=== PATIENT | female | born 1995 | race Hispanic/Latino ===

== ENCOUNTER 2018-11-29 19:58 | Emergency (ER) | payer OTHER ==
--- OUTSIDE RECORDS SUMMARY | 2018-11-29 20:00 | XMS REPORT | Clinical Summary ---
:1995 Author Organization [facility] Address [address] [place] [address] Care Team Providers Name Role Phone Asked, No Pcp Primary Care Provider Unavailable Allergies Active Allergy Reactions Severity Noted Date Comments Ketorolac Shortness Of Breath, GI Intolerance High 06/10/2017 Medications No known medications Active Problems Not on file Immunizations Name Dates Previously Given Next Due Tdap 06/10/2017 Social History Tobacco Use Types Packs/Day Years Used Date Never Assessed Sex Assigned at Date Recorded Not on file Job Start Date Occupation Industry Not on file Not on file Not on file Travel History Travel Start Travel End No recent travel history available. Last Filed Vital Signs Not on file Plan of Treatment Not on file Results Not on fileafter 11/28/2017 Advance Directives Patient has advance care planning documents on file. For more information, please contact:Gordon [id number] [place] [address]
[2018-11-29 20:57] LABS: Absolute Lymphocytes (CBC) 2.5 K/uL (0.7-4.9); Absolute Monocytes 0.7 K/uL (0.1-1.3); Basophils % 0.3 % (0-1.3); Eosinophils % 3.5 % (0-4.4); Hematocrit 35.5 % (36.0-45.0); Lymphocytes % 33.7 % (15.3-44.8); MPV 11.2 fL (7.6-11.3); Monocytes % 8.8 % (3.3-12.3); RBC Red Blood Cell Count 4.19 M/uL (3.86-4.86)
[2018-11-29 21:05] LABS: ALT/SGPT 27 U/L (12-78); AST/SGOT 16 U/L (15-37); Albumin 3.9 g/dL (3.4-5.0); Alkaline Phosphatase 90 U/L (45-117); BUN Blood Urea Nitrogen 13 mg/dL (7-18); Bicarbonate 28 mmol/L (21-32); Bilirubin Direct < 0.1 mg/dL (0-0.2); Bilirubin Total 0.3 mg/dL (0.2-1.0); Glucose Level 85 mg/dL (74-106); Lipase 134 U/L (73-393); Potassium 3.5 mmol/L (3.5-5.1); Protein, Total 7.8 g/dL (6.4-8.2); Sodium Level 142 mmol/L (136-145)
[2018-11-29] MEDS ORDERED: NA CHLORIDE 0.9% 1,000 ML ONE (21:05)
[2018-11-29] MEDS ORDERED: MORPHINE 4 MG/ML SYR ONE (21:05)
[2018-11-29] MEDS ORDERED: ONDANSETRON 4 MG/2 ML VIAL ONE (21:05)
[2018-11-29 21:42] LABS: Urine Blood 2+ (NEG); Urine Glucose NEGATIVE (NEG); Urine Protein NEGATIVE (NEG)
--- NOTE | 2018-11-29 21:52 | ER ---
Nurse's Notes [facility] Name: Teresita Gorman Age: 23 yrs Sex: Female : 1995 Arrival Date: 11/29/2018 Time: 20:01 Bed 26 Private MD: Diagnosis: Right flank pain;nausea and vomiting Presentation: 11/29 20:10 Presenting complaint: Patient states: Dizziness, vomiting, RLQ abdominal pain radiating lp1 to R flank that began yesterday; States low grade fever and chills at home; Denies any pain with urination. Transition of care: patient was not received from another setting of care. Onset of symptoms was November 28, 2018. Risk Assessment: Do you want to hurt yourself or someone else? Patient reports no desire to harm self or others. Initial Sepsis Screen: Does the patient meet any 2 criteria? No. Patient's initial sepsis screen is negative. Does the patient have a suspected source of infection? No. Patient's initial sepsis screen is negative. Care prior to arrival: None. 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 - Social history:: Smoking status: Patient/guardian denies using tobacco. - Ebola Screening: : No symptoms or risks identified at this time. Screenin:13 Abuse screen: Denies threats or abuse. Denies injuries from another. Nutritional lp1 screening: No deficits noted. Tuberculosis screening: No symptoms or risk factors identified. Fall Risk None identified. Assessment: 20:37 General: Appears in no apparent distress. comfortable, Behavior is calm, cooperative. rv Pain: Complains of pain in right lower quadrant Pain currently is 9 out of 10 on a pain scale. Quality of pain is described as sharp, Is intermittent. Neuro: Level of Consciousness is awake, alert, obeys commands, Oriented to person, place, time, situation. Cardiovascular: Patient's skin is warm and dry. Respiratory: Airway is patent. GI: Abdomen is flat, Reports nausea, vomiting. : No signs and/or symptoms were reported regarding the genitourinary system. EENT: No signs and/or symptoms were reported regarding the EENT system. Derm: Skin is intact. Musculoskeletal: No signs and/or symptoms reported regarding the musculoskeletal system. 22:02 Reassessment: Patient appears in no apparent distress at this time. Patient and/or rv family updated on plan of care and expected duration. Pain level reassessed. Patient is alert, oriented x 3, equal unlabored respirations, skin warm/dry/pink. patient went to CT scan. 23:15 Reassessment: patient complained of chest pain. patient is tachycardic upon rv auscultation, EKG done by STACIE Chau. referred to [facility]. cleared for discharge. Vital Signs: 20:12 BP 129 / 68; Pulse 84; Resp 16; Temp 98.3(O); Pulse Ox 100% on R/A; Weight 62.6 kg (R); lp1 Height 5 ft. 4 in. (162.56 cm); Pain 8/10; 21:00 BP 121 / 78; Pulse 82; Resp 18; Pulse Ox 99% ; rv 22:08 BP 131 / 80; Pulse 81; Resp 17 S; Pulse Ox 98% on R/A; rv 23:00 BP 116 / 67; Pulse 71; Resp 17; Temp 98.1; Pulse Ox 97% ; rv 20:12 Body Mass Index 23.69 (62.60 kg, 162.56 cm) lp1 ED Course: 20:01 Patient arrived in ED. am2 20:11 Triage completed. lp1 20:13 Arm band placed on right wrist. lp1 20:14 Jonathan Vital RN is Primary Nurse. rv 20:14 Kofi Headley MD is Attending Physician. ps1 20:25 Inserted saline lock: 20 gauge in right antecubital area, using aseptic technique. rv Blood collected. 20:39 Patient has correct armband on for positive identification. Bed in low position. Call rv light in reach. Side rails up X 1. Pulse ox on. NIBP on. 21:26 Abdomen 1 View (KUB) XRAY In Process Unspecified. EDMS 22:13 CT Abd/Pelvis - IV Contrast Only In Process Unspecified. EDMS 23:16 No provider procedures requiring assistance completed. IV discontinued, intact, rv bleeding controlled, No redness/swelling at site. Pressure dressing applied. Administered Medications: 20:53 Drug: morphine 4 mg Route: IVP; Site: right antecubital; rv 21:49 Follow up: Response: No adverse reaction; Pain is decreased rv 20:53 Drug: Zofran 4 mg Route: IVP; Site: right antecubital; rv 23:17 Follow up: Response: No adverse reaction rv 20:53 Drug: NS 0.9% 1000 ml Route: IV; Rate: 1 bolus; Site: right antecubital; rv 23:17 Follow up: IV Status: Completed infusion; IV Intake: 1000ml rv 21:48 Drug: Reglan 10 mg Route: IVP; Site: right antecubital; rv 23:17 Follow up: Response: Marked relief of symptoms rv 21:49 Drug: Benadryl 25 mg Route: IVP; Site: right antecubital; rv 23:17 Follow up: Response: Marked relief of symptoms rv Intake: 23:17 IV: 1000ml; Total: 1000ml. rv Outcome: 21:50 Discharge ordered by . ps1 23:17 Discharged to home ambulatory. rv 23:17 Condition: improved 23:17 Discharge instructions given to patient, Instructed on discharge instructions, follow up and referral plans. medication usage, Demonstrated understanding of instructions, follow-up care, medications, Prescriptions given X 2. 23:21 Patient left the ED. rv Signatures: Dispatcher [employer] EDMS Rima Archibald RN RN lp1 Corrina Dickens am2 Kofi Headley MD MD ps1 Jonathan Vital RN RN rv
--- NOTE | 2018-11-29 21:52 | EDPHYS ---
Physician Documentation [facility] Name: Teresita Gorman Age: 23 yrs Sex: Female : 1995 Arrival Date: 11/29/2018 Time: 20:01 Bed 26 Private MD: ED Physician Kofi Headley HPI: 11/29 21:42 This 23 yrs old Female presents to ER via Ambulatory with complaints of ps1 Dizziness, Vomiting, Back Pain. 21:42 patient has a history of kidney stones. States that she has had two visits for the same ps1 this year. She is c/o right flank pain for last 48 hours associated with n/v. States that she does not have urinary symptoms. Pain rated as moderate. Has had a couple episodes of vomiting. s/p bettye. . 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 - Social history:: Smoking status: Patient/guardian denies using tobacco. - Ebola Screening: : No symptoms or risks identified at this time. ROS: 21:42 Constitutional: Negative for fever, chills, and weight loss, Eyes: Negative for injury, ps1 pain, redness, and discharge, Cardiovascular: Negative for chest pain, palpitations, and edema, Respiratory: Negative for shortness of breath, cough, wheezing, and pleuritic chest pain, Back: Negative for injury and pain, MS/Extremity: Negative for injury and deformity, Skin: Negative for injury, rash, and discoloration, Neuro: Negative for headache, weakness, numbness, tingling, and seizure. 21:42 Abdomen/GI: Positive for abdominal pain, nausea and vomiting. 21:42 : Positive for flank pain. Exam: 21:42 Constitutional: This is a well developed, well nourished patient who is awake, alert, ps1 and in no acute distress. Head/Face: Normocephalic, atraumatic. Eyes: Pupils equal round and reactive to light, extra-ocular motions intact. Lids and lashes normal. Conjunctiva and sclera are non-icteric and not injected. Chest/axilla: Normal chest wall appearance and motion. Nontender with no deformity. No lesions are appreciated. Cardiovascular: Regular rate and rhythm. No gallops, murmurs, or rubs. Normal PMI, no JVD. No pulse deficits. Respiratory: Lungs have equal breath sounds bilaterally, clear to auscultation and percussion. No rales, rhonchi or wheezes noted. No increased work of breathing, no retractions or nasal flaring. Abdomen/GI: Soft, non-tender, with normal bowel sounds. No distension or tympany. No guarding or rebound. No evidence of tenderness throughout. Skin: Warm, dry with normal turgor. Normal color with no rashes, no lesions, and no evidence of cellulitis. MS/ Extremity: Pulses equal, no cyanosis. Neurovascular intact. Full, normal range of motion. Neuro: Awake and alert, GCS 15, oriented to person, place, time, and situation. Cranial nerves II-XII grossly intact. Sensory grossly intact. Vital Signs: 20:12 BP 129 / 68; Pulse 84; Resp 16; Temp 98.3(O); Pulse Ox 100% on R/A; Weight 62.6 kg (R); lp1 Height 5 ft. 4 in. (162.56 cm); Pain 8/10; 21:00 BP 121 / 78; Pulse 82; Resp 18; Pulse Ox 99% ; rv 22:08 BP 131 / 80; Pulse 81; Resp 17 S; Pulse Ox 98% on R/A; rv 23:00 BP 116 / 67; Pulse 71; Resp 17; Temp 98.1; Pulse Ox 97% ; rv 20:12 Body Mass Index 23.69 (62.60 kg, 162.56 cm) lp1 MDM: 20:47 Patient medically screened. ps1 21:42 Data reviewed: vital signs, nurses notes, lab test result(s), radiologic studies, and ps1 as a result, I will discharge patient. Counseling: I had a detailed discussion with the patient and/or guardian regarding: the historical points, exam findings, and any diagnostic results supporting the discharge/admit diagnosis, lab results, radiology results, the need for outpatient follow up, to return to the emergency department if symptoms worsen or persist or if there are any questions or concerns that arise at home. ED course: KUB ordered as the patient states that she did not want another CT scan for stones. KUB negative for stones. Explained results to patient and she then wanted the scan to look for more etiology of pain. Gave 4x4 and reglan / Benadryl for her PINTO. Labs and imaging reviewed and not c/w acute emergent process. Pt stable for discharge. Can be mild dehydration as patient states that she was working in the heat. . 11/29 20:14 Order name: Basic Metabolic Panel; Complete Time: 21: bb 11/29 20:14 Order name: CBC with Diff; Complete Time: 21:11/29 20:14 Order name: Creatinine for Radiology; Complete Time: 21:11/29 20:14 Order name: Hepatic Function; Complete Time: 21: bb 11/29 20:14 Order name: Lipase; Complete Time: 21: 11/29 20:55 Order name: Urine Dipstick--Ancillary (enter results); Complete Time: 21:52 ag4 11/29 20:45 Order name: Abdomen 1 View (KUB) XRAY ps1 11/29 20:56 Order name: Urine --Ancillary (enter results); Complete Time: 21:52 ag4 11/29 21:37 Order name: CT Abd/Pelvis - IV Contrast Only ps1 11/29 20:14 Order name: IV Saline Lock; Complete Time: 20:43 bb 11/29 20:14 Order name: Labs collected and sent; Complete Time: 20:43 bb Administered Medications: 20:53 Drug: morphine 4 mg Route: IVP; Site: right antecubital; rv 21:49 Follow up: Response: No adverse reaction; Pain is decreased rv 20:53 Drug: Zofran 4 mg Route: IVP; Site: right antecubital; rv 23:17 Follow up: Response: No adverse reaction rv 20:53 Drug: NS 0.9% 1000 ml Route: IV; Rate: 1 bolus; Site: right antecubital; rv 23:17 Follow up: IV Status: Completed infusion; IV Intake: 1000ml rv 21:48 Drug: Reglan 10 mg Route: IVP; Site: right antecubital; rv 23:17 Follow up: Response: Marked relief of symptoms rv 21:49 Drug: Benadryl 25 mg Route: IVP; Site: right antecubital; rv 23:17 Follow up: Response: Marked relief of symptoms rv Disposition: 11/29/18 21:50 Discharged to Home. Impression: Right flank pain, nausea and vomiting. - Condition is Stable. - Discharge Instructions: Flank Pain, Adult, Nausea and Vomiting, Adult. - Prescriptions for Zofran 4 mg Oral Tablet - take 1 tablet by ORAL route every 12 hours As needed; 20 tablet. Tramadol 50 mg Oral Tablet - take 1 tablet by ORAL route every 8 hours as needed; 12 tablet. - Medication Reconciliation Form, Thank You Letter, Antibiotic Education, Prescription Opioid Use, Work release form form. - Follow up: Private Physician; When: As needed; Reason: Recheck today's complaints, Continuance of care, Re-evaluation by your physician. Follow up: Emergency Department; When: As needed; Reason: Fever > 102 F, Worsening of condition. - Problem is new. - Symptoms are unchanged. Signatures: Dispatcher [employer] EDRosina Ewing RN RN bb Rima Archibald RN RN lp1 Kofi Headley MD MD ps1 Jonathan Vital RN RN rv Corrections: (The following items were deleted from the chart) 23:21 21:50 11/29/2018 21:50 Discharged to Home. Impression: Right flank pain; nausea and rv vomiting. Condition is Stable. Forms are Medication Reconciliation Form, Thank You Letter, Antibiotic Education, Prescription Opioid Use. Follow up: Private Physician; When: As needed; Reason: Recheck today's complaints, Continuance of care, Re-evaluation by your physician. Follow up: Emergency Department; When: As needed; Reason: Fever > 102 F, Worsening of condition. Problem is new. Symptoms are unchanged. ps1
[2018-11-29] MEDS ORDERED: METOCLOPRAMIDE 10 MG/2mL INJ ONE (22:01)
[2018-11-29] MEDS ORDERED: DIPHENHYDRAMINE 50 MG/ML VIAL ONE (22:01)
--- NOTE | 2018-11-29 22:35 | RAD REPORT ---
EXAM DESCRIPTION: RAD - Abdomen 1 View (KUB) - 11/29/2018 9:24 pm CLINICAL HISTORY: evaluate for right kidney stone Pain COMPARISON: No comparisons FINDINGS: The bowel gas pattern is non-obstructive. No evidence of free air or pneumatosis. No suspi cious calcifications. Moderate fecal retention in the colon. Cholecystectomy clips. IMPRESSION: Moderate fecal retention in the colon.
--- NOTE | 2018-11-30 10:05 | RAD REPORT ---
EXAM DESCRIPTION: CT Abdomen and Pelvis With Intravenous Contrast CLINICAL HISTORY: The patient is 23 years old and is Female; right lower quadrant pain radiating to flank, vomiting TECHNIQUE: Axial computed tomography images of the abdomen and pelvis with intravenous contrast. S agittal and coronal reformatted images were created and reviewed. This CT exam was performed using one or more of the following dose reduction techniques: automated exposure control, adjustment of t he mA and/or kV according to patient size, and/or use of iterative reconstruction technique. COMPARISON: No relevant prior studies available. FINDINGS: LUNG BASES: Unremarkable. No mass. No consolidation. ABDOMEN: LIVER: Unremarkable. No mass. GALLBLADDER AND BILE DUCTS: Surgical clips are present in the right upper quadrant, consistent w ith previous cholecystectomy. Mild biliary dilatation is present, likely postsurgical. PANCREAS: No ductal dilation. No mass. SPLEEN: Unremarkable. ADRENALS: Unremarkable. No mass. KIDNEYS AND URETERS: Unremarkable. No solid mass. No hydronephrosis. STOMACH AND BOWEL: The stomach is minimally distended with food contents. A few small bowel loop s within the left upper quadrant are fluid-filled the majority of the small bowel is decompressed. A moderate amount of stool is present throughout the colon. There is no mucosal thickening or evidence of bowel obstruction. PELVIS: APPENDIX: The appendix is normal in caliber without surrounding inflammation. BLADDER: Unremarkable. No mass. REPRODUCTIVE: Unremarkable as visualized. ABDOMEN and PELVIS: INTRAPERITONEAL SPACE: Trace free fluid is present within the pelvis which is likely physiologic . No free air. BONES/JOINTS: No acute fracture. SOFT TISSUES: The soft tissues are normal. VASCULATURE: Unremarkable. No abdominal aortic aneurysm. LYMPH NODES: Unremarkable. No enlarged lymph nodes. IMPRESSION: No acute findings on this contrasted CT of the abdomen and pelvis to explain the patient 's symptoms. Electronically signed by: Vianney Dan MD 11/29/2018 10:23 PM CDT Due to temporary technical issues with the PACS/Fluency reporting system, reports are being signed by the in house radiologist as a courtesy to ensure prompt reporting. The interpreting radiologist is f terrily responsible for the content of the report.
--- NOTE | 2018-11-30 15:57 | EKG ---
Test Date: 2018-11-29 Test Time: 22:55:04 Psych Coordinator: FRANK MEASUREMENT RESULTS: Intervals: Rate: 104 PA: 140 QRSD: 72 QT: 366 QTc: 481 [place]: P: 86 PA: 140 QRS: 93 T: 68 INTERPRETIVE STATEMENTS: Sinus tachycardia Rightward axis Borderline ECG No previous ECG available for comparison Electronically Signed On 11-30-18 15:56:22 CDT by Juwan Atkinson
== END 2018-11-29 23:21 | disposition home or self-care (01) ==
LOC: ER 19:58
DX: R10.9 Unspecified abdominal pain (principal); Z88.5 Allergy status to narcotic agent; Z88.6 Allergy status to analgesic agent; Z87.442 Personal history of urinary calculi
CPT/HCPCS: 36415; 74018; 74177; 80048; 80076; 81003; 81025; 83690; 85025; 93005; J2405; J2765; J7030; Q9967

== ENCOUNTER 2018-12-25 18:47 | Emergency (ER) | payer OTHER ==
--- OUTSIDE RECORDS SUMMARY | 2018-12-25 18:50 | XMS REPORT | Clinical Summary ---
:1995 Author Organization [facility] Address [address] [place] [address] Care Team Providers Name Role Phone Asked, [...] Not on file Results Not on fileafter 12/24/2017 Advance Directives Patient has advance care planning documents on file. For more information, please contact:Gordon [id number] [place] [address]
[2018-12-25 19:45] LABS: Absolute Lymphocytes (CBC) 1.6 K/uL (0.7-4.9); Basophils % 0.4 % (0-1.3); Eosinophils % 3.3 % (0-4.4); Hematocrit 35.5 % (36.0-45.0); Lymphocytes % 28.1 % (15.3-44.8); MPV 10.6 fL (7.6-11.3); Monocytes % 7.4 % (3.3-12.3); RBC Red Blood Cell Count 4.33 M/uL (3.86-4.86)
[2018-12-25] MEDS ORDERED: ONDANSETRON 4 MG/2 ML VIAL ONE ×2 (19:57→20:37)
[2018-12-25] MEDS ORDERED: MORPHINE 2 MG/ML SYR ONE ×2 (19:57→20:37)
[2018-12-25] MEDS ORDERED: NA CHLORIDE 0.9% 1,000 ML ONE (19:57)
[2018-12-25 20:06] LABS: Bilirubin Direct 0.1 mg/dL (0-0.2); Bilirubin Total 0.3 mg/dL (0.2-1.0); Potassium 3.3 mmol/L (3.5-5.1); Protein, Total 7.6 g/dL (6.4-8.2)
[2018-12-25 20:07] LABS: Urine Blood 2+ (NEG); Urine Glucose NEGATIVE (NEG); Urine Protein NEGATIVE (NEG)
[2018-12-25] MEDS ORDERED: METOCLOPRAMIDE 10 MG/2mL INJ ONE (22:12)
[2018-12-25] MEDS ORDERED: DIPHENHYDRAMINE 50 MG/ML VIAL ONE (22:12)
[2018-12-25] MEDS ORDERED: DEXAMETHASONE 10 MG/ML VIAL ONE (22:12)
[2018-12-26] MEDS ORDERED: MORPHINE 2 MG/ML SYR ONE (01:24)
--- NOTE | 2018-12-26 02:51 | EDPHYS ---
Physician Documentation [facility] Name: Teresita Gorman Age: 23 yrs Sex: Female : 1995 Arrival Date: 12/25/2018 Time: 18:49 Bed 17 Private MD: ED Physician Chris Gold HPI: 12/25 19:15 This 23 yrs old Female presents to ER via Ambulatory with complaints of cp Abdominal Pain, Headache, Vomiting, Fever. 19:15 The patient presents with abdominal pain in the lower abdomen. Onset: The cp symptoms/episode began/occurred 3-4 days ago. The symptoms do not radiate. Associated signs and symptoms: Pertinent positives: fever, headache, vomiting, Pertinent negatives: blood in stools, constipation, diarrhea. 21:50 Patient reports she was tested for STDs 2 months ago that were negative and that she cp has not been sexually active since. Patient refuses pelvic exam at this time. 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 - Social history:: Smoking status: Patient/guardian denies using tobacco. - Ebola Screening: : Patient denies exposure to infectious person Patient denies travel to an Ebola-affected area in the 21 days before illness onset. ROS: 19:20 Constitutional: Positive for positive for low grade fever, Negative for body aches, cp chills, poor PO intake. 19:20 Eyes: Negative for injury, pain, redness, and discharge. cp 19:20 ENT: Negative for drainage from ear(s), ear pain, sore throat, difficulty swallowing, difficulty handling secretions. 19:20 Cardiovascular: Negative for chest pain. 19:20 Respiratory: Negative for cough, shortness of breath, wheezing. 19:20 Abdomen/GI: Positive for abdominal pain, of the suprapubic area and right lower quadrant, Negative for vomiting, diarrhea, constipation, anorexia. 19:20 Back: Negative for pain at rest, pain with movement, radiated pain. 19:20 : Positive for vaginal spot bleeding, Negative for urinary symptoms. 19:20 Neuro: Positive for headache, Negative for altered mental status, dizziness, weakness. 19:20 All other systems are negative. Exam: 19:25 Head/Face: Normocephalic, atraumatic. cp 19:25 Constitutional: The patient appears in no acute distress, alert, awake, non-toxic, well developed, well nourished. 19:25 Eyes: Periorbital structures: appear normal, Conjunctiva: normal, no exudate, no injection, Sclera: no appreciated abnormality, Lids and lashes: appear normal, bilaterally. 19:25 ENT: External ear(s): are unremarkable, Nose: is normal, Mouth: Lips: moist, Oral cp mucosa: pink and intact, moist, Posterior pharynx: is normal, airway is patent, no erythema, no exudate. 19:25 Chest/axilla: Inspection: normal, Palpation: is normal, no crepitus, no tenderness. 19:25 Cardiovascular: Rate: tachycardic, Rhythm: regular. 19:25 Respiratory: the patient does not display signs of respiratory distress, Respirations: normal, no use of accessory muscles, no retractions, no splinting, no tachypnea, labored breathing, is not present, Breath sounds: are clear throughout, no decreased breath sounds, no stridor, no wheezing. 19:25 Abdomen/GI: Inspection: abdomen appears normal, Bowel sounds: active, all quadrants, Palpation: soft, in all quadrants, moderate abdominal tenderness, in the umbilical area, suprapubic area and right lower quadrant, rebound tenderness, is not appreciated, voluntary guarding, is elicited in the umbilical area, suprapubic area and right lower quadrant. 19:25 Back: pain, is absent, ROM is normal. 19:25 Skin: no rash present. 19:25 Neuro: Orientation: to person, place \T\ time. Mentation: is normal, Cerebellar function: is grossly normal, Motor: moves all fours, strength is normal, Sensation: is normal. 21:52 : Pelvic Exam: The exam is refused by the patient/guardian. The risks and cp consequences are understood by the patient. Vital Signs: 19:02 Resp 14; Height 5 ft. 4 in. (162.56 cm); Pain 9/10; ss 19:05 BP 126 / 78; Pulse 102; Resp 16 S; Temp 99.0(O); Pulse Ox 98% on R/A; Pain 9/10; jd3 19:14 Weight 63.5 kg (R); lp1 19:52 BP 119 / 71; Pulse 80; Resp 17 S; Pulse Ox 99% on R/A; jd3 20:48 BP 116 / 76; Pulse 94; Resp 17 S; Pulse Ox 100% on R/A; jd3 22:07 BP 117 / 81; Pulse 81; Resp 17 S; Pulse Ox 100% on R/A; Pain 7/10; jd3 23:21 BP 108 / 63; Pulse 64; Resp 17 S; Pulse Ox 99% on R/A; jd3 12/26 00:13 BP 114 / 65; Pulse 67; Resp 17 S; Pulse Ox 98% on R/A; jd3 01:15 BP 105 / 64; Pulse 72; Resp 16 S; Pulse Ox 99% on R/A; jd3 02:26 BP 107 / 71; Pulse 80; Resp 16 S; Pulse Ox 98% on R/A; jd3 12/25 19:14 Body Mass Index 24.03 (63.50 kg, 162.56 cm) lp1 MDM: 12/24 20:00 Differential diagnosis: appendicitis, bowel obstruction, Ectopic , Ovarian cp Torsion, Pelvic Inflammatory Disease, Pyelonephritis, Ureterolithiasis, urinary tract infection. 12/25 19:01 Patient medically screened. 12/26 00:30 ED course: CT results reviewed: no acute inflammatory or obstructive process. Pending pm1 ultrasound results. 02:23 Data reviewed: vital signs. Data interpreted: Pulse oximetry: on room air is 99 %. pm1 Interpretation: normal. 02:48 ED course: ultrasound report reviewed. pm1 02:49 Counseling: I had a detailed discussion with the patient and/or guardian regarding: the pm1 historical points, exam findings, and any diagnostic results supporting the discharge/admit diagnosis, lab results, radiology results, the need for outpatient follow up, to return to the emergency department if symptoms worsen or persist or if there are any questions or concerns that arise at home. 12/25 19:12 Order name: Urine Dipstick--Ancillary (enter results); Complete Time: 20:10 ar5 12/25 20:11 Interpretation: Normal except: UBLD 2+. cp 12/25 19:12 Order name: Urine --Ancillary (enter results); Complete Time: 20:10 ar5 12/25 19:28 Order name: Basic Metabolic Panel cp 12/25 19:28 Order name: CBC with Diff cp 12/25 19:28 Order name: Creatinine for Radiology 12/25 19:28 Order name: Hepatic Function; Complete Time: 20:10 cp 12/25 20:11 Interpretation: Normal except: GLOB 3.6. cp 12/25 19:28 Order name: Lipase; Complete Time: 20:10 cp 12/25 19:28 Order name: CT Abd/Pelvis - PO and IV Contrast cp 12/25 19:28 Order name: Basic Metabolic Panel; Complete Time: 20:10 EDMS 12/25 20:11 Interpretation: Normal except: K 3.3; CL 108; GLUC 115; GFR 83. cp 12/25 19:28 Order name: CBC with Automated Diff; Complete Time: 20:10 EDMS 12/25 20:11 Interpretation: Normal except: HGB 11.5; HCT 35.5; MCH 26.5. cp 12/25 19:28 Order name: Creatinine (Radiology Only); Complete Time: 20:10 EDMS 12/25 20:22 Order name: US Transvaginal Study (Probe) cp 12/25 19:28 Order name: IV Saline Lock; Complete Time: 19:49 cp 12/25 19:28 Order name: Labs collected and sent; Complete Time: 19:49 cp Administered Medications: 12/25 19:49 Drug: NS 0.9% 1000 ml Route: IV; Rate: 1 bolus; Site: right antecubital; jd3 21:00 Follow up: Response: No adverse reaction; IV Status: Completed infusion; IV Intake: jd3 1000ml 19:49 Drug: morphine 2 mg Route: IVP; Site: right antecubital; jd3 20:26 Follow up: Response: No adverse reaction jd3 19:49 Drug: Zofran 4 mg Route: IVP; Site: right antecubital; jd3 20:26 Follow up: Response: No adverse reaction jd3 20:25 Drug: Zofran 4 mg Route: IVP; Site: right antecubital; jd3 21:20 Follow up: Response: No adverse reaction jd3 20:26 Drug: morphine 2 mg Route: IVP; Site: right antecubital; jd3 21:25 Follow up: Response: No adverse reaction jd3 22:04 Drug: Reglan 10 mg Route: IVP; Site: right antecubital; jd3 23:00 Follow up: Response: No adverse reaction jd3 22:05 Drug: Decadron - Dexamethasone 10 mg Route: IVP; Site: right antecubital; jd3 23:00 Follow up: Response: No adverse reaction jd3 22:05 Drug: Benadryl 25 mg Route: IVP; Site: right antecubital; jd3 23:00 Follow up: Response: No adverse reaction jd3 12/26 01:12 Drug: morphine 2 mg Route: IVP; Site: right antecubital; jd3 02:10 Follow up: Response: No adverse reaction; Pain is decreased jd3 Disposition: 12/26/18 02:50 Discharged to Home. Impression: Unspecified abdominal pain, Headache, Vomiting. - Condition is Stable. - Discharge Instructions: Abdominal Pain, Adult, General Headache Without Cause, Nausea and Vomiting, Adult. - Prescriptions for Zofran 4 mg Oral Tablet - take 1 tablet by ORAL route every 12 hours As needed; 20 tablet. Tramadol 50 mg Oral Tablet - take 1 tablet by ORAL route every 8 hours as needed; 12 tablet. - Medication Reconciliation Form, Thank You Letter, Antibiotic Education, Prescription Opioid Use, Work release form form. - Follow up: Emergency Department; When: As needed; Reason: Worsening of condition. Follow up: Private Physician; When: 2 - 3 days; Reason: Recheck today's complaints, Continuance of care, Re-evaluation by your physician. - Problem is new. - Symptoms have improved. Signatures: Dispatcher [employer] EDSD Nati Beard RN RN Roberto Villa PA PA cp Marinas, Patrick, NP WORSHIP DIRECTOR pm1 Jhonathan Grimes RN RN jd3 Corrections: (The following items were deleted from the chart) 03:23 02:50 12/26/2018 02:50 Discharged to Home. Impression: Unspecified abdominal pain; jd3 Headache; Vomiting. Condition is Stable. Forms are Medication Reconciliation Form, Thank You Letter, Antibiotic Education, Prescription Opioid Use. Follow up: Emergency Department; When: As needed; Reason: Worsening of condition. Follow up: Private Physician; When: 2 - 3 days; Reason: Recheck today's complaints, Continuance of care, Re-evaluation by your physician. Problem is new. Symptoms have improved. pm1
--- NOTE | 2018-12-26 02:51 | ER ---
Nurse's Notes [facility] Name: Teresita Gorman Age: 23 yrs Sex: Female : 1995 Arrival Date: 12/25/2018 Time: 18:49 Bed 17 Private MD: Diagnosis: Unspecified abdominal pain;Headache;Vomiting Presentation: 12/25 18:58 Presenting complaint: Patient states: Suprapubic discomfort that began 3-4 days ago ss with N/V and fever. TMAX 100.0. Transition of care: patient was not received from another setting of care. Onset of symptoms was December 22, 2018. Risk Assessment: Do you want to hurt yourself or someone else? Patient reports no desire to harm self or others. Initial Sepsis Screen:. Care prior to arrival: None. 18:58 Method Of Arrival: Ambulatory ss 18:58 Acuity: AUSTEN 3 ss 19:13 Initial Sepsis Screen: Does the patient meet any 2 criteria? No. Patient's initial lp1 sepsis screen is negative. Does the patient have a suspected source of infection? No. Patient's initial sepsis screen is negative. 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 - Social history:: Smoking status: Patient/guardian denies using tobacco. - Ebola Screening: : Patient denies exposure to infectious person Patient denies travel to an Ebola-affected area in the 21 days before illness onset. Screenin:12 Abuse screen: Denies threats or abuse. Denies injuries from another. Nutritional lp1 screening: No deficits noted. Tuberculosis screening: No symptoms or risk factors identified. Fall Risk None identified. Assessment: 19:11 General: Appears in no apparent distress. Behavior is appropriate for age. Pain: lp1 Complains of pain in suprapubic area Pain currently is 9 out of 10 on a pain scale. Quality of pain is described as sharp. Neuro: Level of Consciousness is awake, alert, obeys commands. Cardiovascular: Patient's skin is warm and dry. Respiratory: Respiratory effort is even, unlabored. GI: Abdomen is non-distended, Bowel sounds present X 4 quads. Abdomen is tender to palpation in suprapubic area. : Reports pain in suprapubic area. EENT: No signs and/or symptoms were reported regarding the EENT system. Derm: Skin is pink, warm \T\ dry. Musculoskeletal: No deficits noted. 19:50 General: Appears in no apparent distress. uncomfortable, Behavior is calm, cooperative, jd3 appropriate for age. Pain: Complains of pain in suprapubic area Quality of pain is described as sharp. Neuro: Level of Consciousness is awake, alert, obeys commands, Oriented to person, place, time, situation. Cardiovascular: Capillary refill < 3 seconds Patient's skin is warm and dry. Respiratory: Airway is patent Respiratory effort is even, unlabored, Respiratory pattern is regular, symmetrical. GI: Abdomen is non-distended, Abdomen is tender to palpation in suprapubic area. : No signs and/or symptoms were reported regarding the genitourinary system. EENT: No signs and/or symptoms were reported regarding the EENT system. Derm: Skin is intact, Skin is dry, Skin is normal, Skin temperature is warm. Musculoskeletal: Circulation, motion, and sensation intact. Range of motion: intact in all extremities. 20:48 Reassessment: Patient appears in no apparent distress at this time. Patient and/or jd3 family updated on plan of care and expected duration. Pain level reassessed. Patient is alert, oriented x 3, equal unlabored respirations, skin warm/dry/pink. awaiting CT scan and results. pt resting in bed. 22:06 Reassessment: Patient appears in no apparent distress at this time. Patient and/or jd3 family updated on plan of care and expected duration. Pain level reassessed. Patient is alert, oriented x 3, equal unlabored respirations, skin warm/dry/pink. pt reporting decreased abdominal pain. reports continued headache. provider notified. 23:20 Reassessment: Patient appears in no apparent distress at this time. Patient and/or jd3 family updated on plan of care and expected duration. Pain level reassessed. Patient is alert, oriented x 3, equal unlabored respirations, skin warm/dry/pink. awaiting results. Patient states feeling better. 12/26 00:13 Reassessment: Patient appears in no apparent distress at this time. Patient and/or jd3 family updated on plan of care and expected duration. Pain level reassessed. Patient is alert, oriented x 3, equal unlabored respirations, skin warm/dry/pink. awaiting CT results and disposition. Patient states feeling better. 01:14 Reassessment: Patient appears in no apparent distress at this time. Patient and/or jd3 family updated on plan of care and expected duration. Pain level reassessed. Patient is alert, oriented x 3, equal unlabored respirations, skin warm/dry/pink. pt reporting returning abdominal pain. provider notified. pt denies headache at this time. 02:25 Reassessment: Patient appears in no apparent distress at this time. Patient and/or jd3 family updated on plan of care and expected duration. Pain level reassessed. Patient is alert, oriented x 3, equal unlabored respirations, skin warm/dry/pink. awaiting ultrasound results and disposition. pt resting in bed with even and unlabored respirations. no distress noted at this time. 03:19 Reassessment: Patient appears in no apparent distress at this time. Patient and/or jd3 family updated on plan of care and expected duration. Pain level reassessed. Patient is alert, oriented x 3, equal unlabored respirations, skin warm/dry/pink. reported understanding of discharge instructions. even and steady gait upon discharge. Patient states feeling better. Vital Signs: 12/25 19:02 Resp 14; Height 5 ft. 4 in. (162.56 cm); Pain 9/10; ss 19:05 BP 126 / 78; Pulse 102; Resp 16 S; Temp 99.0(O); Pulse Ox 98% on R/A; Pain 9/10; jd3 19:14 Weight 63.5 kg (R); lp1 19:52 BP 119 / 71; Pulse 80; Resp 17 S; Pulse Ox 99% on R/A; jd3 20:48 BP 116 / 76; Pulse 94; Resp 17 S; Pulse Ox 100% on R/A; jd3 22:07 BP 117 / 81; Pulse 81; Resp 17 S; Pulse Ox 100% on R/A; Pain 7/10; jd3 23:21 BP 108 / 63; Pulse 64; Resp 17 S; Pulse Ox 99% on R/A; jd3 07/01 00:13 BP 114 / 65; Pulse 67; Resp 17 S; Pulse Ox 98% on R/A; jd3 01:15 BP 105 / 64; Pulse 72; Resp 16 S; Pulse Ox 99% on R/A; jd3 02:26 BP 107 / 71; Pulse 80; Resp 16 S; Pulse Ox 98% on R/A; jd3 12/25 19:14 Body Mass Index 24.03 (63.50 kg, 162.56 cm) lp1 ED Course: 12/25 18:49 Patient arrived in ED. as 18:59 Roberto Verdugo PA is PHCP. cp 18:59 Chiki Vela MD is Attending Physician. cp 19:00 Triage completed. ss 19:02 Arm band placed on right wrist. ss 19:11 Rima Archibald, RN is Primary Nurse. lp1 19:13 Patient has correct armband on for positive identification. Placed in gown. lp1 19:27 Chris Gold MD is Attending Physician. cp 19:33 Inserted saline lock: 20 gauge in right antecubital area, using aseptic technique. jd3 Blood collected. 19:48 Oral contrast given. ka 20:41 Primary Nurse role handed off by Rima Archibald, RN jd3 20:41 Jhonathan Grimes, STACIE is Primary Nurse. jd3 21:21 US Transvaginal Study (Probe) In Process Unspecified. EDMS 21:22 Ultrasound completed. Patient tolerated well. sg3 22:43 PHCP role handed off by Roberto Verdugo PA pm1 22:43 Alex Pereyra NP is PHCP. pm1 23:10 CT Abd/Pelvis - PO and IV Contrast In Process Unspecified. EDMS 23:21 No provider procedures requiring assistance completed. jd3 12/26 03:18 IV discontinued, intact, bleeding controlled, No redness/swelling at site. Pressure jd3 dressing applied. Administered Medications: 12/25 19:49 Drug: NS 0.9% 1000 ml Route: IV; Rate: 1 bolus; Site: right antecubital; jd3 21:00 Follow up: Response: No adverse reaction; IV Status: Completed infusion; IV Intake: jd3 1000ml 19:49 Drug: morphine 2 mg Route: IVP; Site: right antecubital; jd3 20:26 Follow up: Response: No adverse reaction jd3 19:49 Drug: Zofran 4 mg Route: IVP; Site: right antecubital; jd3 20:26 Follow up: Response: No adverse reaction jd3 20:25 Drug: Zofran 4 mg Route: IVP; Site: right antecubital; jd3 21:20 Follow up: Response: No adverse reaction jd3 20:26 Drug: morphine 2 mg Route: IVP; Site: right antecubital; jd3 21:25 Follow up: Response: No adverse reaction jd3 22:04 Drug: Reglan 10 mg Route: IVP; Site: right antecubital; jd3 23:00 Follow up: Response: No adverse reaction jd3 22:05 Drug: Decadron - Dexamethasone 10 mg Route: IVP; Site: right antecubital; jd3 23:00 Follow up: Response: No adverse reaction jd3 22:05 Drug: Benadryl 25 mg Route: IVP; Site: right antecubital; jd3 23:00 Follow up: Response: No adverse reaction jd3 12/26 01:12 Drug: morphine 2 mg Route: IVP; Site: right antecubital; jd3 02:10 Follow up: Response: No adverse reaction; Pain is decreased jd3 Intake: 12/25 21:00 IV: 1000ml; Total: 1000ml. jd3 Outcome: 12/26 02:50 Discharge ordered by . pm1 03:17 Discharged to home ambulatory. jd3 03:17 Condition: stable 03:17 Discharge instructions given to patient, Instructed on discharge instructions, follow up and referral plans. medication usage, Demonstrated understanding of instructions, follow-up care, medications, Prescriptions given X 2. 03:23 Patient left the ED. jd3 Signatures: Dispatcher [employer] EDMS Deloris Benson Shelby, RN RN ss Rima Archibald RN RN lp1 Roberto Verdugo PA PA cp Aguilera, Katelyn ka Marinas, Patrick, NP PRESCHOOL AIDE pm1 Jhonathan Grimes RN RN jd3 Joy Limon sg3 Corrections: (The following items were deleted from the chart) 12/25 22:07 20:48 Reassessment: Patient appears in no apparent distress at this time. Patient jd3 and/or family updated on plan of care and expected duration. Pain level reassessed. Patient is alert, oriented x 3, equal unlabored respirations, skin warm/dry/pink. awaiting CT scan and results. pt resting in bed. Patient states feeling better. jd3 12/26 01:15 01:14 Reassessment: Patient appears in no apparent distress at this time. Patient jd3 and/or family updated on plan of care and expected duration. Pain level reassessed. Patient is alert, oriented x 3, equal unlabored respirations, skin warm/dry/pink. pt reporting returning abdominal pain. jd3
--- NOTE | 2018-12-26 09:48 | RAD REPORT ---
EXAM DESCRIPTION: US - Transvaginal Study Probe - 12/25/2018 9:22 pm CLINICAL HISTORY: Suprapubic discomfort for 3 to 4 days. COMPARISON: None. TECHNIQUE: High-resolution grayscale endovaginal sonographic evaluation of the pelvis performed with color flow. FINDINGS: Uterus: Retroflexed, 6.6 x 4.3 x 6.0 cm. Normal myometrial echogenicity. Endometrium: 5 mm. No endometrial fluid. Right ovary: 4.3 x 2.4 x 2.0 cm. Right ovarian follicles and normal flow identified. Left ovary: 3.7 x 2.1 x 2.5 cm. Several left ovarian follicles with normal flow identified. No adnexal mass. Mild cul-de-sac pelvic free fluid. IMPRESSION: 1. Normal uterus and ovaries. 2. Mild pelvic free fluid within the cul-de-sac. Electronically signed by: Estelle Stone DO 12/26/2018 2:53 AM CDT Due to temporary technical issues with the PACS/Fluency reporting system, reports are being signed by the in house radiologist as a courtesy to ensure prompt reporting. The interpreting radiologist is f ully responsible for the content of the report.
--- NOTE | 2018-12-26 10:15 | RAD REPORT ---
EXAM DESCRIPTION: CT - Abdomen Pelvis W Contrast - 12/26/2018 12:50 am CLINICAL HISTORY: RLQ abdomen pain COMPARISON: 11/29/2018 TECHNIQUE: CT of the abdomen and pelvis performed following IV administration of iodinated contrast. DLP: 1067.5 mGycm FINDINGS: Lung Bases: The visualized lung bases are clear. Bones: No destructive bone lesions identified. Abdomen: Liver: The liver has normal size and density. No intrahepatic mass or biliary dilatation. Gallbladder: Prior cholecystectomy. Spleen, Pancreas, and Adrenal Glands: The spleen, pancreas, and adrenal glands are unremarkable. Kidneys: The kidneys have normal size and contour without evidence of solid mass or hydronephrosis. Vasculature: The aorta and IVC have normal caliber and position. The portal vein is patent. The pro ximal visceral and renal arteries are patent. Stomach: The stomach and duodenum have normal course. Other: No free intraperitoneal air. Trace free pelvic fluid may be physiologic. Pelvis: Bladder: Urinary bladder is unremarkable. Bowel: No dilated loops of large or small bowel. Appendix: Normal appendix. Pelvis: Uterus is not enlarged. IMPRESSION: 1. No acute inflammatory or obstructive process identified. This exam was performed according to our departmental dose-optimization program, which includes autom ated exposure control, adjustment of the mA and/or kV according to patient size and/or use of iterati ve reconstruction technique. Electronically signed by: Rahat Irwin 12/25/2018 11:28 PM CDT [facility] issues with the PACS/Fluency reporting system, reports are being signed b y the in house radiologist as a courtesy to ensure prompt reporting. The interpreting radiologist is fully responsible for the content of the report.
== END 2018-12-26 03:23 | disposition home or self-care (01) ==
LOC: ER 18:47
DX: R51 Headache (principal); R11.10 Vomiting, unspecified; Z88.5 Allergy status to narcotic agent; Z88.6 Allergy status to analgesic agent
CPT/HCPCS: 36415; 74177; 76830; 80048; 80076; 81003; 81025; 83690; 85025; 96361; 96374; 96375; 99284; J1100; J2270; J2405; J2765; J7030; Q9967

== ENCOUNTER 2019-01-25 18:15 | Emergency (ER) | payer OTHER ==
--- OUTSIDE RECORDS SUMMARY | 2019-01-25 18:17 | XMS REPORT | Clinical Summary ---
:1995 Author Organization [facility] Address [address] [place] [address] Care Team Providers Name Role Phone Asked, [...] Not on file Results Not on fileafter 01/24/2018 Advance Directives Patient has advance care planning documents on file. For more information, please contact:[id number] [place] [address]
[2019-01-25 19:21] LABS: Urine Blood 3+ (NEG); Urine Glucose NEGATIVE (NEG); Urine Protein TRACE (NEG); Urine Specific Gravity 1.025 (1.005-1.030)
--- NOTE | 2019-01-25 19:49 | RAD REPORT ---
EXAM DESCRIPTION: US - Transvaginal Study Probe - 01/25/2019 7:38 pm CLINICAL HISTORY: ABD PAIN Pelvic pain. COMPARISON: Transvaginal Study Probe dated 12/25/2018 FINDINGS: The uterus is normal in size, shape and echotexture. The uterus measures 6.7 x 6.2 x 4.7 c m. The endometrial stripe measures 6 mm, normal. Both ovaries are normal in size, shape and echotexture. The right ovary measures 3.4 x 2.8 x 2.0. T he left ovary measures 3.1 x 2.4 x 1.9 cm. No ovarian or parovarian lesions. No adnexal masses. Normal Doppler blood flow was demonstrated to both ovaries. No significant pelvic ascites. IMPRESSION: Unremarkable study.
[2019-01-25] MEDS ORDERED: HYDROCODONE/APAP 5/325 MG TAB ONE (20:16)
--- NOTE | 2019-01-25 20:38 | RAD REPORT ---
EXAM DESCRIPTION: CT - Stone Protocol - 01/25/2019 8:11 pm CLINICAL HISTORY: Flank pain. ABD PAIN COMPARISON: Abdomen Pelvis W Contrast dated 12/25/2018; Abdomen Pelvis W Contrast dated 11/29/2018; Transvaginal Study Probe dated 01/25/2019 TECHNIQUE: Axial images were obtained without oral or IV contrast. Lack of contrast limits solid org an and vascular assessment. The [id number] spans the entirety of the system partially obscuring uppermost abdomen and lung bases. Coronal reformatted images were obtained and reviewed. All CT scans are performed using dose optimization technique as appropriate and may include automated exposure control or mA/KV adjustment according to patient size. FINDINGS: The lower lung bhatti are clear. Imaged portions of the liver and spleen show no suspicious findings on non-contrast imaging. The panc reas and adrenal glands are normal. No pathologic lymphadenopathy in the abdomen or pelvis. No urinary tract stones or obstructive uropathy. No bowel obstruction, free air, free fluid or abscess. Prominent stool is retained in the colon. Norm al appendix noted. No significant bony abnormality. IMPRESSION: Moderate fecal retention.
--- NOTE | 2019-01-25 21:13 | ER ---
Nurse's Notes [facility] Name: Teresita Gorman Age: 23 yrs Sex: Female : 1995 Arrival Date: 01/25/2019 Time: 18:18 Bed 14 Private MD: Diagnosis: Constipation;Dysmenorrhea, unspecified Presentation: 01/25 18:24 Presenting complaint: Severe menstrual cramps x 2 days. Transition of care: patient was hb not received from another setting of care. Onset of symptoms was January 24, 2019. Risk Assessment: Do you want to hurt yourself or someone else? Patient reports no desire to harm self or others. Initial Sepsis Screen: Does the patient meet any 2 criteria? No. Patient's initial sepsis screen is negative. Does the patient have a suspected source of infection? No. Patient's initial sepsis screen is negative. Care prior to arrival: Medication(s) given: Tramadol at 1200, Aleve at 1500. 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 Screenin:34 Abuse screen: Denies threats or abuse. Denies injuries from another. Nutritional aj1 screening: No deficits noted. Tuberculosis screening: No symptoms or risk factors identified. 19:00 Fall Risk None identified. jb4 Assessment: 18:34 General: Appears in no apparent distress. uncomfortable, Behavior is calm, cooperative, aj1 appropriate for age. Pain: Complains of pain in right lower quadrant and left lower quadrant Pain does not radiate. Pain currently is 10 out of 10 on a pain scale. Quality of pain is described as crampy. Neuro: Level of Consciousness is awake, alert, obeys commands, Oriented to person, place, time, situation, Moves all extremities. Full function Gait is steady, Speech is normal, Reports dizziness. Cardiovascular: Patient's skin is warm and dry. Respiratory: Airway is patent Respiratory effort is even, unlabored, Respiratory pattern is regular, symmetrical. GI: Abdomen is non-distended, Bowel sounds present X 4 quads. Abd is soft X 4 quads Reports cramping, Patient currently denies diarrhea, nausea, vomiting. : Reports vaginal bleeding that is bright red. EENT: No signs and/or symptoms were reported regarding the EENT system. Derm: No signs and/or symptoms reported regarding the dermatologic system. Skin is pink, warm \T\ dry. normal. Musculoskeletal: No signs and/or symptoms reported regarding the musculoskeletal system. Circulation, motion, and sensation intact. 19:15 Reassessment: PT is at ultrasound. jb4 20:46 Reassessment: Patient appears in no apparent distress at this time. Patient and/or jb4 family updated on plan of care and expected duration. Pain level reassessed. Patient is alert, oriented x 3, equal unlabored respirations, skin warm/dry/pink. 21:20 Reassessment: Patient appears in no apparent distress at this time. Patient and/or jb4 family updated on plan of care and expected duration. Pain level reassessed. Patient is alert, oriented x 3, equal unlabored respirations, skin warm/dry/pink. PT Left the ED ambulatory with steady gait, verbalized understanding of d/c and follow up instructions. Denies questions or concerns. Vital Signs: 18:25 BP 122 / 72; Pulse 84; Resp 16; Temp 98.5; Pulse Ox 100% on R/A; Weight 63.5 kg; Height hb 5 ft. 4 in. (162.56 cm); Pain 10/10; 20:45 BP 129 / 79; Pulse 101; Resp 18; Pulse Ox 100% on R/A; jb4 18:25 Body Mass Index 24.03 (63.50 kg, 162.56 cm) ED Course: 18:18 Patient arrived in ED. mr 18:24 Triage completed. hb 18:25 [facility]C [facility] kb 18:25 Chiki Vela MD is Attending Physician. kb 18:25 Arm band placed on. hb 18:27 Candace Onofre, STACIE is Primary Nurse. aj1 18:34 Patient has correct armband on for positive identification. Bed in low position. Call aj1 light in reach. Side rails up X 1. 18:34 No provider procedures requiring assistance completed. aj1 19:39 US Transvaginal Study (Probe) In Process Unspecified. EDMS 20:11 CT Stone Protocol In Process Unspecified. EDMS 21:20 Patient did not have IV access during this emergency room visit. jb4 Administered Medications: 20:01 Drug: [place] 5 mg-325 mg 1 tabs Route: PO; aj1 20:47 Follow up: Response: No adverse reaction; Pain is unchanged, physician notified jb4 21:26 Drug: Dulcolax Delayed Release Tablet 5 mg Route: PO; jb4 21:26 Follow up: Response: Medication administered at discharge. jb4 Outcome: 21:12 Discharge ordered by MD. kb 21:20 Discharged to home ambulatory. jb4 21:20 Condition: stable 21:20 Discharge instructions given to patient, Instructed on discharge instructions, follow up and referral plans. medication usage, Demonstrated understanding of instructions, follow-up care, medications, Prescriptions given X 1. 21:27 Patient left the ED. jb4 Signatures: Dispatcher [employer] EDSC Carleen Reynaga, VENEREAL DISEASE CONTROL HEAD-C VENEREAL DISEASE CONTROL HEAD-Ckb Candace Onofre, RN RN aj Nena Hunter Heather, RN RN Alexis Eisenberg RN RN jb4 Corrections: (The following items were deleted from the chart) 18:25 18:24 Care prior to arrival: None. hb hb
--- NOTE | 2019-01-25 21:14 | EDPHYS ---
Physician Documentation [facility] Name: Teresita Gorman Age: 23 yrs Sex: Female : 1995 Arrival Date: 01/25/2019 Time: 18:18 Bed 14 Private MD: ED Physician Chiki Vela HPI: 01/25 21:18 This 23 yrs old Female presents to ER via Ambulatory with complaints of kb Abdominal Pain. 21:18 The patient presents with abdominal pain in the left lower quadrant. Onset: The kb symptoms/episode began/occurred 3 day(s) ago. The symptoms do not radiate. Associated signs and symptoms: none. The symptoms are described as crampy. Modifying factors: The symptoms are alleviated by nothing, the symptoms are aggravated by nothing. Severity of pain: At its worst the pain was moderate in the emergency department the pain is unchanged. The patient has not experienced similar symptoms in the past. The patient has not recently seen a physician. Pt reports menstrual cramps that started the day after her cycle started. States she has taken OTC medication without relief. . 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 ROS: 21:18 Constitutional: Negative for fever, chills, and weight loss, Neck: Negative for injury, kb pain, and swelling, Cardiovascular: Negative for chest pain, palpitations, and edema, Respiratory: Negative for shortness of breath, cough, wheezing, and pleuritic chest pain, Back: Negative for injury and pain, : Negative for injury, bleeding, discharge, and swelling, MS/Extremity: Negative for injury and deformity, Skin: Negative for injury, rash, and discoloration, Neuro: Negative for headache, weakness, numbness, tingling, and seizure. 21:18 Abdomen/GI: Positive for abdominal pain. Exam: 21:18 Constitutional: This is a well developed, well nourished patient who is awake, alert, kb and in no acute distress. Head/Face: Normocephalic, atraumatic. ENT: Nares patent. No nasal discharge, no septal abnormalities noted. Tympanic membranes are normal and external auditory canals are clear. Oropharynx with no redness, swelling, or masses, exudates, or evidence of obstruction, uvula midline. Mucous membranes moist. Neck: Trachea midline, no thyromegaly or masses palpated, and no cervical lymphadenopathy. Supple, full range of motion without nuchal rigidity, or vertebral point tenderness. No Meningismus. Chest/axilla: Normal chest wall appearance and motion. Nontender with no deformity. No lesions are appreciated. Cardiovascular: Regular rate and rhythm with a normal S1 and S2. No gallops, murmurs, or rubs. Normal PMI, no JVD. No pulse deficits. Respiratory: Lungs have equal breath sounds bilaterally, clear to auscultation and percussion. No rales, rhonchi or wheezes noted. No increased work of breathing, no retractions or nasal flaring. Back: No spinal tenderness. No costovertebral tenderness. Full range of motion. Skin: Warm, dry with normal turgor. Normal color with no rashes, no lesions, and no evidence of cellulitis. MS/ Extremity: Pulses equal, no cyanosis. Neurovascular intact. Full, normal range of motion. Neuro: Awake and alert, GCS 15, oriented to person, place, time, and situation. Cranial nerves II-XII grossly intact. Motor strength 5/5 in all extremities. Sensory grossly intact. Cerebellar exam normal. Normal gait. 21:18 Abdomen/GI: Inspection: abdomen appears normal, Bowel sounds: normal, in all quadrants, Palpation: soft, in all quadrants, moderate abdominal tenderness, in the left lower quadrant. Vital Signs: 18:25 BP 122 / 72; Pulse 84; Resp 16; Temp 98.5; Pulse Ox 100% on R/A; Weight 63.5 kg; Height hb 5 ft. 4 in. (162.56 cm); Pain 10/10; 20:45 BP 129 / 79; Pulse 101; Resp 18; Pulse Ox 100% on R/A; jb4 18:25 Body Mass Index 24.03 (63.50 kg, 162.56 cm) hb MDM: 18:27 Patient medically screened. kb 21:17 Data reviewed: vital signs, nurses notes. Data interpreted: Pulse oximetry: on room air kb is 100 %. Interpretation: normal. Counseling: I had a detailed discussion with the patient and/or guardian regarding: the historical points, exam findings, and any diagnostic results supporting the discharge/admit diagnosis, lab results, radiology results, the need for outpatient follow up, a family practitioner, to return to the emergency department if symptoms worsen or persist or if there are any questions or concerns that arise at home. 01/25 18:38 Order name: Urine Dipstick--Ancillary (enter results); Complete Time: 19:24 bd 01/25 18:38 Order name: Urine --Ancillary (enter results); Complete Time: 19:24 bd 01/25 18:36 Order name: US Transvaginal Study (Probe); Complete Time: 19:54 kb 01/25 19:56 Order name: CT Stone Protocol; Complete Time: 21:08 kb 01/25 18:37 Order name: Urine Dipstick-Ancillary (obtain specimen); Complete Time: 18:41 kb Administered Medications: 20:01 Drug: [place] 5 mg-325 mg 1 tabs Route: PO; aj1 20:47 Follow up: Response: No adverse reaction; Pain is unchanged, physician notified jb4 21:26 Drug: Dulcolax Delayed Release Tablet 5 mg Route: PO; jb4 21:26 Follow up: Response: Medication administered at discharge. jb4 Disposition: 01/25/19 21:12 Discharged to Home. Impression: Constipation, Dysmenorrhea, unspecified. - Condition is Stable. - Discharge Instructions: Constipation, Adult, [id number], Dysmenorrhea, [id number]-[id number]. - Medication Reconciliation Form, Thank You Letter, Antibiotic Education, Prescription Opioid Use form. - Follow up: Emergency Department; When: As needed; Reason: Worsening of condition. Follow up: Private Physician; When: 2 - 3 days; Reason: Recheck today's complaints, Continuance of care, Re-evaluation by your physician. Signatures: Dispatcher [employer] Carleen Howell FNP-C FNP-Candace Ordonez RN RN aj1 Jazmine Guevara RN RN hb Bryson, James, RN RN jb4 Corrections: (The following items were deleted from the chart) 21:27 21:12 01/25/2019 21:12 Discharged to Home. Impression: Constipation; Dysmenorrhea, jb4 unspecified. Condition is Stable. Forms are Medication Reconciliation Form, Thank You Letter, Antibiotic Education, Prescription Opioid Use. Follow up: Emergency Department; When: As needed; Reason: Worsening of condition. Follow up: Private Physician; When: 2 - 3 days; Reason: Recheck today's complaints, Continuance of care, Re-evaluation by your physician. kb
[2019-01-25] MEDS ORDERED: BISACODYL E.C. 5 MG TAB PO ONE (21:38)
== END 2019-01-25 21:27 | disposition home or self-care (01) ==
LOC: ER 18:15
DX: K59.00 Constipation, unspecified (principal); N94.6 Dysmenorrhea, unspecified; Z88.6 Allergy status to analgesic agent; D64.9 Anemia, unspecified
CPT/HCPCS: 74176; 76377; 76830; 81003; 81025

== ENCOUNTER 2019-02-09 15:04 | Emergency (ER) | payer OTHER ==
--- OUTSIDE RECORDS SUMMARY | 2019-02-09 15:05 | XMS REPORT | Clinical Summary ---
:1995 Author Organization [facility] Address [address] [place] [address] Care Team Providers Name Role Phone Asked, [...] Not on file Results Not on fileafter 02/08/2018 Advance Directives Patient has advance care planning documents on file. For more information, please contact:[address] [place] [address]
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
[2019-02-09] MEDS ORDERED: HYDROCODONE/APAP 5/325 MG TAB ONE (15:23)
== END 2019-02-09 15:26 | disposition home or self-care (01) ==
LOC: ER 15:04
DX: M54.12 Radiculopathy, cervical region (principal); Z88.5 Allergy status to narcotic agent; Z88.6 Allergy status to analgesic agent
CPT/HCPCS: 99283

== ENCOUNTER 2019-04-18 16:34 | Emergency (ER) | payer OTHER, SELFPAY ==
[2019-04-18] MEDS ORDERED: HYDROCODONE/APAP 5/325 MG TAB ONE (17:04)
[2019-04-18] MEDS ORDERED: PROMETHAZINE 25 MG TABLET ONE (17:04)
[2019-04-18 17:19] LABS: Urine Blood 2+ (NEG); Urine Glucose NEGATIVE (NEG); Urine Protein TRACE (NEG); Urine pH 7.5 (5.0-7.0)
[2019-04-18 17:46] LABS: Urine RBC 20-50 /HPF (NONE SEEN)
[2019-04-18 17:47] LABS: Urine Bacteria <20 /HPF (<20); Urine Culture Reflex Order NOT NEEDED; Urine Mucus 1+ /HPF (NONE SEEN)
--- NOTE | 2019-04-18 18:04 | RAD REPORT ---
EXAM DESCRIPTION: US - Renal Ultrasound-Limited - 04/18/2019 5:45 pm CLINICAL HISTORY: Right flank pain FINDINGS: Right kidney measures 10 centimeters with a normal echotexture A mass is not seen. No hydronephrosis No gross abnormality of bladder IMPRESSION: Unremarkable ultrasound right kidney
[2019-04-18] MEDS ORDERED: NITROFURAN MACRO 100 MG CAP PO ONE (19:10)
[2019-04-18] MEDS ORDERED: DICYCLOMINE HCL 10 MG CAP ONE (19:11)
--- NOTE | 2019-04-18 19:12 | EDPHYS ---
Physician Documentation [facility] Name: Teresita Gorman Age: 23 yrs Sex: Female : 1995 Arrival Date: 04/18/2019 Time: 16:37 Bed 6 Private MD: ED Physician Chiki Vela HPI: 04/18 17:24 This 23 yrs old Female presents to ER via Ambulatory with complaints of Low snw Back Pain, Fever, Vomiting. 17:24 The patient presents with pain that is acute. The symptoms are located in the right mid snw back. Location: right lower quad. The problem was sustained from unknown cause. Onset: The symptoms/episode began/occurred suddenly, and became worse today. Associated signs and symptoms: Pertinent positives: abdominal pain, nausea, Pertinent negatives: fever, vomiting. Severity of symptoms: At their worst the symptoms were moderate. The patient has experienced similar episodes in the past, a few times. pt had recent CT for kidney stone, declines additional CT today, will US for eval for hydro. 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 - Social history:: Smoking status: Patient/guardian denies using tobacco. - Ebola Screening: : No symptoms or risks identified at this time. ROS: 17:21 Eyes: Negative for injury, pain, redness, and discharge, ENT: Negative for injury, snw pain, and discharge, Neck: Negative for injury, pain, and swelling, Cardiovascular: Negative for chest pain, palpitations, and edema, Respiratory: Negative for shortness of breath, cough, wheezing, and pleuritic chest pain, MS/Extremity: Negative for injury and deformity, Skin: Negative for injury, rash, and discoloration, Neuro: Negative for headache, weakness, numbness, tingling, and seizure, Psych: Negative for depression, anxiety, suicide ideation, homicidal ideation, and hallucinations. 17:21 Constitutional: Positive for body aches. 17:21 Abdomen/GI: Positive for abdominal pain, nausea. 17:21 Back: Positive for flank pain, on the right. 17:21 : Positive for vaginal bleeding, menstrual abnormality, increased clots and cramping since yesterday with menses . Exam: 17:20 Constitutional: This is a well developed, well nourished patient who is awake, alert, snw and in no acute distress. Head/Face: Normocephalic, atraumatic. Eyes: Pupils equal round and reactive to light, extra-ocular motions intact. Lids and lashes normal. Conjunctiva and sclera are non-icteric and not injected. Cornea within normal limits. Periorbital areas with no swelling, redness, or edema. ENT: Nares patent. No nasal discharge, no septal abnormalities noted. Tympanic membranes are normal and external auditory canals are clear. Oropharynx with no redness, swelling, or masses, exudates, or evidence of obstruction, uvula midline. Mucous membranes moist. Neck: Trachea midline, no thyromegaly or masses palpated, and no cervical lymphadenopathy. Supple, full range of motion without nuchal rigidity, or vertebral point tenderness. No Meningismus. Chest/axilla: Normal chest wall appearance and motion. Nontender with no deformity. No lesions are appreciated. Cardiovascular: Regular rate and rhythm with a normal S1 and S2. No gallops, murmurs, or rubs. Normal PMI, no JVD. No pulse deficits. Respiratory: Lungs have equal breath sounds bilaterally, clear to auscultation and percussion. No rales, rhonchi or wheezes noted. No increased work of breathing, no retractions or nasal flaring. Abdomen/GI: Soft, non-tender, with normal bowel sounds. No distension or tympany. No guarding or rebound. No evidence of tenderness throughout. 17:20 Skin: Warm, dry with normal turgor. Normal color with no rashes, no lesions, and no evidence of cellulitis. MS/ Extremity: Pulses equal, no cyanosis. Neurovascular intact. Full, normal range of motion. Neuro: Awake and alert, GCS 15, oriented to person, place, time, and situation. Cranial nerves II-XII grossly intact. Motor strength 5/5 in all extremities. Sensory grossly intact. Cerebellar exam normal. Normal gait. Psych: Awake, alert, with orientation to person, place and time. Behavior, mood, and affect are within normal limits. 17:20 Back: pain, that is moderate, of the right mid back, ROM is normal, muscle spasm, is not present. Vital Signs: 16:48 BP 120 / 72; Pulse 89; Resp 16; Temp 98.1; Pulse Ox 100% on R/A; Weight 72.57 kg; la1 Height 5 ft. 4 in. (162.56 cm); 19:15 BP 122 / 65; Pulse 67; Resp 18; Pulse Ox 100% ; ea 16:48 Body Mass Index 27.46 (72.57 kg, 162.56 cm) la1 MDM: 17:00 Patient medically screened. snw 17:26 Data reviewed: vital signs, nurses notes. Data interpreted: Pulse oximetry: on room air snw is 100 %. Interpretation: normal. Refusal of service: The patient/guardian displays adequate decision making capability and despite a detailed discussion of alternatives, benefits, risks, and consequences refuses: CT Scan. 04/18 16:48 Order name: Urine Culture snw 04/18 16:48 Order name: Urine Microscopic Only; Complete Time: 17:54 snw 04/18 17:01 Order name: US Rp Exam Limited; Complete Time: 18:14 snw 04/18 17:04 Order name: Urine Dipstick--Ancillary (enter results) 04/18 17:04 Order name: Urine --Ancillary (enter results) 04/18 16:48 Order name: Urine Test (obtain specimen); Complete Time: 17:02 snw 04/18 16:48 Order name: Urine Dipstick-Ancillary (obtain specimen); Complete Time: 17:02 snw Administered Medications: 17:07 Drug: [place] 5 mg-325 mg 1 tabs Route: PO; jl7 19:15 Follow up: Response: No adverse reaction ea 17:08 Drug: Phenergan 25 mg Route: PO; jl7 20:05 Follow up: Response: No adverse reaction ea 19:22 Drug: Bentyl 20 mg Route: PO; ea 19:50 Follow up: Response: No adverse reaction ea 19:22 Drug: Macrobid 100 mg Route: PO; ea 19:50 Follow up: Response: No adverse reaction ea Disposition: 04/18/19 19:11 Discharged to Home. Impression: Dysmenorrhea, unspecified, Dysuria, Vomiting. - Condition is Stable. - Discharge Instructions: Dysmenorrhea, Dysuria, Menorrhagia, Nausea and Vomiting, Adult, Rehydration, Adult. - Prescriptions for Bentyl 20 mg Oral Tablet - take 2 tablet by ORAL route every 6 hours As needed; 40 tablet. Macrobid 100 mg Oral Capsule - take 1 capsule by ORAL route every 12 hours for 10 days; 20 capsule. promethazine 25 mg Oral Tablet - take 1 tablet by ORAL route every 6 hours As needed; 20 tablet. - Medication Reconciliation Form, Thank You Letter, Antibiotic Education, Prescription Opioid Use, Work release form form. - Follow up: Private Physician; When: 2 - 3 days; Reason: Recheck today's complaints, Continuance of care, Re-evaluation by your physician. Follow up: Emergency Department; When: As needed; Reason: Worsening of condition. Addendum: 04/22/2019 06:59 Co-signature as Attending Physician, Chiki Vela MD. r n Signatures: Dispatcher [employer] EDMS Toshia Dumont, MARKETING SERVICES VICE PRESIDENT-C MARKETING SERVICES VICE PRESIDENT-Csnw Chiki Vela MD MD rn Attema, Lee, RN RN la1 Jamil Franklin RN RN jl7 Kim Celis RN STACIE ea Corrections: (The following items were deleted from the chart) 04/18 20:04 19:11 04/18/2019 19:11 Discharged to Home. Impression: Dysmenorrhea, unspecified; ea Dysuria; Vomiting. Condition is Stable. Forms are Medication Reconciliation Form, Thank You Letter, Antibiotic Education, Prescription Opioid Use. Follow up: Private Physician; When: 2 - 3 days; Reason: Recheck today's complaints, Continuance of care, Re-evaluation by your physician. Follow up: Emergency Department; When: As needed; Reason: Worsening of condition. snw
--- NOTE | 2019-04-18 19:12 | ER ---
Nurse's Notes [facility] Name: Teresita Gorman Age: 23 yrs Sex: Female : 1995 Arrival Date: 04/18/2019 Time: 16:37 Bed 6 Private MD: Diagnosis: Dysmenorrhea, unspecified;Dysuria;Vomiting Presentation: 04/18 16:46 Presenting complaint: Patient states: Urinary burning for three days, back pain, and la1 vomiting. Bleeding more than normal per her cycle with clots as well. Transition of care: patient was not received from another setting of care. Onset of symptoms was April 18, 2019. Risk Assessment: Do you want to hurt yourself or someone else? Patient reports no desire to harm self or others. Initial Sepsis Screen: Does the patient meet any 2 criteria? No. Patient's initial sepsis screen is negative. Does the patient have a suspected source of infection? No. Patient's initial sepsis screen is negative. Care prior to arrival: None. 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 - Social history:: Smoking status: Patient/guardian denies using tobacco. - Ebola Screening: : No symptoms or risks identified at this time. Screenin:08 Abuse screen: Denies threats or abuse. Denies injuries from another. Nutritional jl7 screening: No deficits noted. Tuberculosis screening: No symptoms or risk factors identified. Fall Risk None identified. Assessment: 17:08 General: Appears in no apparent distress. uncomfortable, ill, well groomed, well jl7 developed, Behavior is calm, cooperative, appropriate for age. Pain: Complains of pain in right low back Pain radiates to right lower quadrant Pain currently is 10 out of 10 on a pain scale. Quality of pain is described as sharp, stinging, Pain began 2-3 days ago. Is continuous. Neuro: Level of Consciousness is awake, alert, obeys commands, Oriented to person, place, time, situation. Cardiovascular: Patient's skin is warm and dry. Respiratory: Airway is patent Respiratory effort is even, unlabored, Respiratory pattern is regular, symmetrical. GI: Abdomen is flat, non-distended, Reports nausea. : Reports burning with urination, vaginal bleeding that is with clots, heavy flow. Derm: Skin is pink, warm \T\ dry. 19:10 General: Appears in no apparent distress. Behavior is calm, cooperative, appropriate ea for age. Pain: Complains of pain in abdomen. Neuro: Level of Consciousness is awake, alert, obeys commands, Oriented to person, place, time, situation. Cardiovascular: Patient's skin is warm and dry. Respiratory: Airway is patent Respiratory effort is even, unlabored, Respiratory pattern is regular, symmetrical. Derm: Skin is pink, warm \T\ dry. 19:54 Reassessment: Patient and/or family updated on plan of care and expected duration. Pain ea level reassessed. Patient is alert, oriented x 3, equal unlabored respirations, skin warm/dry/pink. Discharge instruction given to patient, verbalized the understanding of instruction, pt left ED ambulatory tolerating well. Vital Signs: 16:48 BP 120 / 72; Pulse 89; Resp 16; Temp 98.1; Pulse Ox 100% on R/A; Weight 72.57 kg; la1 Height 5 ft. 4 in. (162.56 cm); 19:15 BP 122 / 65; Pulse 67; Resp 18; Pulse Ox 100% ; ea 16:48 Body Mass Index 27.46 (72.57 kg, 162.56 cm) la1 ED Course: 16:37 Patient arrived in ED. as 16:47 Toshia Dumont FNP-C is PHCP. snw 16:47 Chiki Vela MD is Attending Physician. snw 16:48 Triage completed. la1 16:48 Arm band placed on left wrist. la1 17:03 Jamil Franklin RN is Primary Nurse. jl7 17:05 Urine collected: clean catch specimen, mali colored. sv 17:08 Patient has correct armband on for positive identification. Bed in low position. Call jl7 light in reach. Side rails up X 1. 17:29 Patient moved back from ultrasound. sv 17:46 US Rp Exam Limited In Process Unspecified. EDMS 19:56 No provider procedures requiring assistance completed. Patient did not have IV access ea during this emergency room visit. Administered Medications: 17:07 Drug: Walker 5 mg-325 mg 1 tabs Route: PO; jl7 19:15 Follow up: Response: No adverse reaction ea 17:08 Drug: Phenergan 25 mg Route: PO; jl7 20:05 Follow up: Response: No adverse reaction ea 19:22 Drug: Bentyl 20 mg Route: PO; ea 19:50 Follow up: Response: No adverse reaction ea 19:22 Drug: Macrobid 100 mg Route: PO; ea 19:50 Follow up: Response: No adverse reaction ea Outcome: 19:11 Discharge ordered by . blanka 19:56 Discharged to home ambulatory. ea 19:56 Condition: stable 19:56 Discharge instructions given to patient, Instructed on discharge instructions, follow up and referral plans. medication usage, Demonstrated understanding of instructions, follow-up care, medications, Prescriptions given X 3. 20:04 Patient left the ED. ea Addendum: 04/22/2019 11:45 Addendum: Culture Results: Positive urine culture. Bacteria is resistant to, has a a5 intermediate sensitivity, or is not tested against prescribed antibiotics. Report given to RANDALL for further evaluation and then to manager photo for follow up with patient. Phone call Attempt #1 Spoke to patient over the phone and call was disconnected, attempted to call patient 2 other times and unable to leave voicemail due to voicemail being full. Signatures: Dispatcher [employer] Sarita Ramos RN RN sv Therrien, Shelly, SALES PERFORMANCE ANALYST-C SALES PERFORMANCE ANALYST-Deloris Rivera Audri, RN RN aa5 Josafat Valdez RN RN la1 Jamil Franklin RN RN jl7 Kim Celis RN RN ea Corrections: (The following items were deleted from the chart) 04/18 19:56 19:10 Pain: Complains of pain in headache ea ea
[2019-04-18 21:33] VITALS: TEMP 98.1; O2SAT 100
[2019-04-18 21:34] VITALS: BP 122/65
== END 2019-04-18 20:04 | disposition home or self-care (01) ==
LOC: ER 16:34
DX: R11.10 Vomiting, unspecified (principal); N94.6 Dysmenorrhea, unspecified; R30.0 Dysuria; Z88.5 Allergy status to narcotic agent; Z88.6 Allergy status to analgesic agent
CPT/HCPCS: 76775; 81003; 81015; 81025; 87077; 87086; 87088; 87186; 99284; Q0169

== ENCOUNTER 2019-05-08 06:44 | Emergency (ER) | payer SELFPAY ==
[2019-05-08] MEDS ORDERED: ONDANSETRON 4 MG (ODT) TAB ONE (07:24)
--- OUTSIDE RECORDS SUMMARY | 2019-05-08 07:28 | XMS REPORT ---
:1995 [facility] [place] [address] Care Team Providers Name Role Phone Unavailable Unavailable Unavailable Problems This patient has no known problems. Allergies, Adverse Reactions, Alerts This patient has no known allergies or adverse reactions. Medications This patient has no known medications.
--- NOTE | 2019-05-08 08:19 | ER ---
Nurse's Notes [facility] Name: Teresita Gorman Age: 23 yrs Sex: Female : 1995 Arrival Date: 05/08/2019 Time: 06:47 Bed 18 Private MD: Diagnosis: Acute upper respiratory infection, unspecified Presentation: 05/08 07:00 Presenting complaint: Patient states: FEVER, VOMITING, SORE THROAT x3 DAYS. Transition bp of care: patient was not received from another setting of care. Onset of symptoms is unknown. Risk Assessment: Do you want to hurt yourself or someone else? Patient reports no desire to harm self or others. Initial Sepsis Screen: Does the patient meet any 2 criteria? No. Patient's initial sepsis screen is negative. Does the patient have a suspected source of infection? No. Patient's initial sepsis screen is negative. Care prior to arrival: None. 07:00 Method Of Arrival: Ambulatory bp 07:00 Acuity: AUSTEN 3 bp Triage Assessment: 07:00 General: Appears in no apparent distress. comfortable, Behavior is cooperative, bp appropriate for age, anxious. Pain: Complains of pain in THROAT. EENT: Reports pain when swallowing. Neuro: No deficits noted. Cardiovascular: No deficits noted. Respiratory: Airway is patent. GI: No signs and/or symptoms were reported involving the gastrointestinal system. : No signs and/or symptoms were reported regarding the genitourinary system. Derm: No deficits noted. Musculoskeletal: No deficits noted. 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 - Social history:: Smoking status: Patient/guardian denies using tobacco. - Ebola Screening: : No symptoms or risks identified at this time. Screenin:14 Abuse screen: Denies threats or abuse. Denies injuries from another. Nutritional bp screening: No deficits noted. Tuberculosis screening: No symptoms or risk factors identified. Fall Risk None identified. Assessment: 07:13 General: SEE TRIAGE NOTE. Respiratory: Airway is patent Respiratory effort is even, bp unlabored, Breath sounds are clear bilaterally. 07:13 EENT: Throat is clear. bp 08:26 Reassessment: PT D/C HOME AMBULATORY, DX WITH VIRAL URI. bp Vital Signs: 07:00 BP 121 / 79; Pulse 97; Resp 20; Temp 99.2; Pulse Ox 96% ; Weight 74.84 kg; Height 5 ft. bp 4 in. (162.56 cm); 08:21 BP 117 / 76; Pulse 90; Resp 16; Pulse Ox 100% ; bp 07:00 Body Mass Index 28.32 (74.84 kg, 162.56 cm) bp ED Course: 06:47 Patient arrived in ED. ag3 06:48 Carleen Reynaga FNP-C is [facility]. kb 06:48 Chiki Vela MD is Attending Physician. kb 06:59 Adán Lynch, RN is Primary Nurse. bp 07:00 Arm band placed on. bp 07:09 Triage completed. bp 07:11 Flu and/or RSV swab sent to lab. Strep swab sent to lab. ms 07:14 Patient has correct armband on for positive identification. Bed in low position. Call bp light in reach. Side rails up X2. 08:14 Throat Culture Sent. bp 08:16 EKG done, by laundry technician. reviewed by Chiki Vela MD. tc 08:26 No provider procedures requiring assistance completed. Patient did not have IV access bp during this emergency room visit. Administered Medications: 07:15 Drug: Zofran 4 mg Route: PO; bp 08:13 Follow up: Response: Nausea is decreased bp Outcome: 08:18 Discharge ordered by . kb 08:26 Discharged to home ambulatory. bp 08:26 Condition: stable 08:26 Discharge instructions given to patient, Instructed on discharge instructions, follow up and referral plans. Demonstrated understanding of instructions, follow-up care. 08:27 Patient left the ED. bp Signatures: Carleen Reynaga FNP-C FNP-Donna Kebede ms Pepper Weaver, rn endocrinology EKG Ttc Adán Lynch, RN RN bp Aylin Fuentes ag3
--- NOTE | 2019-05-08 08:19 | EDPHYS ---
Physician Documentation [facility] Name: Teresita Gorman Age: 23 yrs Sex: Female : 1995 Arrival Date: 05/08/2019 Time: 06:47 Bed 18 Private MD: ED Physician Chiki Vela HPI: 05/08 07:12 This 23 yrs old Female presents to ER via Ambulatory with complaints of Sore kb Throat, Fever. 07:12 The patient or guardian reports cough, that is intermittent, described as moderate, kb with no sputum, flu symptoms, low-grade fever, myalgias. Onset: The symptoms/episode began/occurred 3 day(s) ago. Severity of symptoms: At their worst the symptoms were moderate, in the emergency department the symptoms are unchanged. Modifying factors: The symptoms are alleviated by nothing, the symptoms are aggravated by nothing. Associated signs and symptoms: Pertinent positives: chest pain, fever, rhinorrhea, sore throat, vomiting, Pertinent negatives: diarrhea, ear ache. The patient has not experienced similar symptoms in the past. The patient has not recently seen a physician. Pt reports cough, sore throat, chest pain, nausea, vomiting, runny nose and fever for 3 days. States "I woke up for work this morning and didn't think I could go in.". 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 - Social history:: Smoking status: Patient/guardian denies using tobacco. - Ebola Screening: : No symptoms or risks identified at this time. ROS: 07:12 Neck: Negative for injury, pain, and swelling, Abdomen/GI: Negative for abdominal pain, kb nausea, vomiting, diarrhea, and constipation, Back: Negative for injury and pain, : Negative for injury, bleeding, discharge, and swelling, MS/Extremity: Negative for injury and deformity, Skin: Negative for injury, rash, and discoloration, Neuro: Negative for headache, weakness, numbness, tingling, and seizure. 07:12 Constitutional: Positive for body aches, chills, fatigue, fever, malaise. 07:12 ENT: Positive for sore throat. 07:12 Cardiovascular: Positive for chest pain, Negative for edema, orthopnea, palpitations, paroxysmal nocturnal dyspnea. 07:12 Respiratory: Positive for cough, Negative for dyspnea on exertion, hemoptysis, orthopnea, pleurisy, shortness of breath, sputum production, wheezing. Exam: 07:11 Constitutional: This is a well developed, well nourished patient who is awake, alert, kb and in no acute distress. Head/Face: Normocephalic, atraumatic. ENT: Nares patent. No nasal discharge, no septal abnormalities noted. Tympanic membranes are normal and external auditory canals are clear. Oropharynx with no redness, swelling, or masses, exudates, or evidence of obstruction, uvula midline. Mucous membranes moist. Neck: Trachea midline, no thyromegaly or masses palpated, and no cervical lymphadenopathy. Supple, full range of motion without nuchal rigidity, or vertebral point tenderness. No Meningismus. Chest/axilla: Normal chest wall appearance and motion. Nontender with no deformity. No lesions are appreciated. Cardiovascular: Regular rate and rhythm with a normal S1 and S2. No gallops, murmurs, or rubs. Normal PMI, no JVD. No pulse deficits. Respiratory: Lungs have equal breath sounds bilaterally, clear to auscultation and percussion. No rales, rhonchi or wheezes noted. No increased work of breathing, no retractions or nasal flaring. Abdomen/GI: Soft, non-tender, with normal bowel sounds. No distension or tympany. No guarding or rebound. No evidence of tenderness throughout. Skin: Warm, dry with normal turgor. Normal color with no rashes, no lesions, and no evidence of cellulitis. MS/ Extremity: Pulses equal, no cyanosis. Neurovascular intact. Full, normal range of motion. Neuro: Awake and alert, GCS 15, oriented to person, place, time, and situation. Cranial nerves II-XII grossly intact. Motor strength 5/5 in all extremities. Sensory grossly intact. Cerebellar exam normal. Normal gait. 08:18 ECG was reviewed by the Attending Physician. kb Vital Signs: 07:00 BP 121 / 79; Pulse 97; Resp 20; Temp 99.2; Pulse Ox 96% ; Weight 74.84 kg; Height 5 ft. bp 4 in. (162.56 cm); 08:21 BP 117 / 76; Pulse 90; Resp 16; Pulse Ox 100% ; bp 07:00 Body Mass Index 28.32 (74.84 kg, 162.56 cm) bp MDM: 06:52 Patient medically screened. kb 07:11 Data reviewed: vital signs, nurses notes. Data interpreted: Pulse oximetry: on room air kb is 100 %. Interpretation: normal. 08:17 Counseling: I had a detailed discussion with the patient and/or guardian regarding: the kb historical points, exam findings, and any diagnostic results supporting the discharge/admit diagnosis, lab results, the need for outpatient follow up, a family practitioner, to return to the emergency department if symptoms worsen or persist or if there are any questions or concerns that arise at home. 05/08 07:00 Order name: Flu; Complete Time: 07:36 kb 05/08 07:00 Order name: Strep; Complete Time: 07:36 kb 05/08 07:00 Order name: EKG; Complete Time: 07:01 kb 05/08 07:00 Order name: EKG - Nurse/Tech; Complete Time: 08:13 kb 05/08 07:36 Order name: Throat Culture EDMS EC:18 Rate is 95 beats/min. Rhythm is regular, Normal Sinus Rhythm. QRS [employer] is Normal. [place] kb interval is normal. QRS interval is normal at 76 msec. QT interval is normal at 356 msec. No Q waves. Clinical impression: Normal ECG. Interpreted by me. Reviewed by me. Administered Medications: 07:15 Drug: Zofran 4 mg Route: PO; bp 08:13 Follow up: Response: Nausea is decreased bp Disposition: 15:55 Co-signature as Attending Physician, Chiki Vela MD. rn Disposition: 05/08/19 08:18 Discharged to Home. Impression: Acute upper respiratory infection, unspecified. - Condition is Stable. - Discharge Instructions: Upper Respiratory Infection, Adult, [id number], Viral Respiratory Infection, [id number]. - Medication Reconciliation Form, Thank You Letter, Antibiotic Education, Prescription Opioid Use, Work release form form. - Follow up: Emergency Department; When: As needed; Reason: Worsening of condition. Follow up: Private Physician; When: 2 - 3 days; Reason: Recheck today's complaints, Continuance of care, Re-evaluation by your physician. Signatures: Dispatcher [employer] Carleen Howell, MIRIAM MCOGWAN-Chiki Urbano MD MD rn Peltier, Brian, RN RN bp Corrections: (The following items were deleted from the chart) 08:27 08:18 05/08/2019 08:18 Discharged to Home. Impression: Acute upper respiratory bp infection, unspecified. Condition is Stable. Forms are Medication Reconciliation Form, Thank You Letter, Antibiotic Education, Prescription Opioid Use. Follow up: Emergency Department; When: As needed; Reason: Worsening of condition. Follow up: Private Physician; When: 2 - 3 days; Reason: Recheck today's complaints, Continuance of care, Re-evaluation by your physician. kb
[2019-05-08 08:35] VITALS: TEMP 99.2
[2019-05-08 08:37] VITALS: BP 117/76; O2SAT 100
--- NOTE | 2019-05-08 08:37 | EKG ---
Test Date: 2019-05-08 Test Time: 08:10:23 Global Professional: BONNIE MEASUREMENT RESULTS: Intervals: Rate: 95 CA: 138 QRSD: 76 QT: 356 QTc: 447 [place]: P: 76 CA: 138 QRS: 88 T: 79 INTERPRETIVE STATEMENTS: Normal sinus rhythm Normal ECG Compared to ECG 11/29/2018 22:55:04 Sinus tachycardia no longer present Right-axis deviation no longer present Electronically Signed On 05-08-19 08:37:13 MUSICAL INSTRUMENT SUPERVISOR by Juwan Atkinson
== END 2019-05-08 08:27 | disposition home or self-care (01) ==
LOC: ER 06:44
DX: J06.9 Acute upper respiratory infection, unspecified (principal); Z88.6 Allergy status to analgesic agent
CPT/HCPCS: 87070; 87081; 87804; 93005; 99283

== ENCOUNTER 2019-07-11 04:50 | Emergency (ER) | payer SELFPAY ==
--- OUTSIDE RECORDS SUMMARY | 2019-07-11 04:51 | XMS REPORT ---
:1995 [facility] [address] [place] [address] Care Team Providers Name Role Phone Unavailable Unavailable Unavailable Problems This patient has no known problems. Allergies, Adverse Reactions, Alerts This patient has no known allergies or adverse reactions. Medications This patient has no known medications.
[2019-07-11] MEDS ORDERED: MORPHINE 4 MG/ML SYR ONE (05:27)
[2019-07-11] MEDS ORDERED: LORAZEPAM 1 MG TABLET ONE (05:27)
[2019-07-11] MEDS ORDERED: ONDANSETRON 4 MG/2 ML VIAL ONE (05:27)
[2019-07-11] MEDS ORDERED: NA CHLORIDE 0.9% 2,000 ML ONE (05:27)
[2019-07-11] MEDS ORDERED: CEFTRIAXONE/SWI 1gm 1 GM/10 ML SYR ONE (05:28)
[2019-07-11 05:39] LABS: Basophils % 0.3 % (0-1.3); Hematocrit 31.9 % (36.0-45.0); Lymphocytes % 31.4 % (15.3-44.8); MPV 11.5 fL (7.6-11.3); RBC Red Blood Cell Count 4.57 M/uL (3.86-4.86)
[2019-07-11 06:22] LABS: Urine Bacteria <20 /HPF (<20); Urine Culture Reflex Order NOT NEEDED; Urine Mucus 1+ /HPF (NONE SEEN); Urine RBC 20-50 /HPF (NONE SEEN)
[2019-07-11 06:22] LABS: Urine Blood 2+ (NEG); Urine Glucose NEGATIVE (NEG); Urine Protein NEGATIVE (NEG); Urine Specific Gravity >1.030 (1.005-1.030)
[2019-07-11 06:50] LABS: ALT/SGPT 48 U/L (12-78); AST/SGOT 19 U/L (15-37); Albumin 3.8 g/dL (3.4-5.0); Alkaline Phosphatase 83 U/L (45-117); BUN Blood Urea Nitrogen 5 mg/dL (7-18); Bicarbonate 25 mmol/L (21-32); Bilirubin Direct < 0.1 mg/dL (0-0.2); Bilirubin Total 0.2 mg/dL (0.2-1.0); Glucose Level 100 mg/dL (74-106); Lipase 153 U/L (73-393); Potassium 3.5 mmol/L (3.5-5.1); Protein, Total 7.8 g/dL (6.4-8.2); Sodium Level 142 mmol/L (136-145)
--- NOTE | 2019-07-11 06:52 | ER ---
Nurse's Notes [facility] Name: Teresita Gorman Age: 23 yrs Sex: Female : 1995 Arrival Date: 07/11/2019 Time: 04:52 Bed 13 Private MD: Diagnosis: Infection of other stoma of urinary tract;Cystitis, unspecified without hematuria Presentation: 07/11 05:00 Presenting complaint: Patient states: I started having right lower back pain around jb4 midnight that has progressively gotten worse. It starts in my right lower back and radiates to my right lower stomach. Transition of care: patient was not received from another setting of care. Onset of symptoms was July 11, 2019. Risk Assessment: Do you want to hurt yourself or someone else? Patient reports no desire to harm self or others. Initial Sepsis Screen: Does the patient meet any 2 criteria? HR > 90 bpm. Yes Does the patient have a suspected source of infection? No. Patient's initial sepsis screen is negative. Care prior to arrival: None. 05:00 Method Of Arrival: Ambulatory jb4 05:00 Acuity: AUSTEN 3 jb4 Triage Assessment: 05:00 General: Appears in no apparent distress. uncomfortable, Behavior is calm, cooperative, jb4 appropriate for age. Pain: Complains of pain in right low back Pain radiates to right lower quadrant. EENT: No signs and/or symptoms were reported regarding the EENT system. Neuro: Level of Consciousness is awake, alert, obeys commands, Oriented to person, place, time, situation. Cardiovascular: Patient's skin is warm and dry. Respiratory: Airway is patent Respiratory effort is even, unlabored, Respiratory pattern is regular, symmetrical. GI: No signs and/or symptoms were reported involving the gastrointestinal system. : No signs and/or symptoms were reported regarding the genitourinary system. Derm: Skin is intact, Skin is pink, warm \T\ dry. Musculoskeletal: Circulation, motion, and sensation intact. Range of motion: intact in all extremities. 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 - Social history:: Smoking status: Patient/guardian denies using tobacco, Patient/guardian denies using alcohol, street drugs, Patient/guardian denies using IV drugs, The patient lives alone. - Ebola Screening: : No symptoms or risks identified at this time. - Family history:: not pertinent. Screenin:00 Abuse screen: Denies threats or abuse. Nutritional screening: No deficits noted. jb4 Tuberculosis screening: No symptoms or risk factors identified. Fall Risk None identified. Assessment: 05:00 General: see triage note.. jb4 06:23 Reassessment: Patient appears in no apparent distress at this time. Patient and/or jb4 family updated on plan of care and expected duration. Pain level reassessed. Patient is alert, oriented x 3, equal unlabored respirations, skin warm/dry/pink. 07:01 Reassessment: RECD REPORT FROM ALFONZO QUINONES. 23YO HF P/W LOW BACK PAIN. ALL CURRENT ORDERS bp COMPLETED. D/C ON HOLD FOR IVF COMPLETION. 08:10 Reassessment: IVF COMPLETE. PT D/C HOME AMBULATORY WITH FAMILY, DX WITH UTI. bp Vital Signs: 05:00 BP 123 / 76; Pulse 104; Resp 16; Temp 98.4(TE); Pulse Ox 100% on R/A; Weight 64.86 kg jb4 (R); Height 5 ft. 4 in. (162.56 cm) (R); Pain 9/10; 06:15 BP 107 / 72; Pulse 79; Resp 16; Pulse Ox 100% on R/A; jb4 07:02 BP 108 / 60; Pulse 79; Resp 16; Pulse Ox 100% ; bp 08:11 BP 106 / 65; Pulse 75; Resp 16; Temp 98.5; Pulse Ox 100% ; bp 05:00 Body Mass Index 24.55 (64.86 kg, 162.56 cm) jb4 ED Course: 04:52 Patient arrived in ED. cl3 04:53 Alexis Eisenberg RN is Primary Nurse. jb4 04:54 Kike Morrison MD is Attending Physician. ma2 05:00 Arm band placed on right wrist. jb4 05:00 Patient has correct armband on for positive identification. Bed in low position. Call jb4 light in reach. Side rails up X 1. Pulse ox on. NIBP on. 05:01 Triage completed. 4 05:22 Inserted saline lock: 22 gauge in right antecubital area, using aseptic technique. id Blood collected. 06:58 Primary Nurse role handed off by Alexis Eisenberg RN 06:58 Emmy Love is Primary Nurse. 08:11 No provider procedures requiring assistance completed. IV discontinued, intact, bp bleeding controlled, No redness/swelling at site. Pressure dressing applied. Administered Medications: 05:40 Drug: Zofran 4 mg Route: IVP; Site: right antecubital; 4 07:02 Follow up: Response: Nausea is decreased bp 05:43 Drug: morphine 4 mg {Note: Rass score 0.} Route: IVP; Site: right antecubital; 4 07:03 Follow up: Response: Pain is decreased bp 05:44 Drug: Rocephin 1 grams Route: IV; Rate: calculated rate; Site: right antecubital; jb4 08:12 Follow up: IV Status: Completed infusion; IV Intake: 100ml bp 05:47 Drug: NS 0.9% 2000 ml Route: IV; Rate: 1 bolus; Site: right antecubital; 4 08:13 Follow up: IV Status: Completed infusion; IV Intake: 2000ml bp 05:47 Drug: Ativan 1 mg Route: PO; jb4 07:02 Follow up: Response: Pain is decreased bp Intake: 08:12 IV: 100ml; Total: 100ml. bp 08:13 IV: 2000ml; Total: 2100ml. bp Outcome: 06:51 Discharge ordered by . ma2 08:11 Discharged to home ambulatory, with family. bp 08:11 Condition: stable 08:11 Discharge instructions given to patient, Instructed on discharge instructions, follow up and referral plans. medication usage, Demonstrated understanding of instructions, follow-up care, medications, Prescriptions given X 3. 08:13 Patient left the ED. bp Addendum: 07/15/2019 07:18 Addendum: Culture Results: Positive urine culture. No further action required. Bacteria a r5 sensitive to prescribed antibiotic. Signatures: Alexis Eisenberg, Dede Coronado RN Emmy Kim Brian, STACIE RN bp Kike Morrison MD MD ma2 Laura Mcconnell ar5 John Bowen cl3 Corrections: (The following items were deleted from the chart) 07/11 07:09 07:01 Reassessment: RECD REPORT FROM ALFONZO QUINONES. 23YO HF P/W LOW BACK PAIN. ALL CURRENT bp ORDERS COMPLETED. D/C ON HOLD FOR PROVIDER RE-EVAL bp
[2019-07-11 07:34] LABS: Blood Morphology Comment NOTED (NOT SEEN); Platelet Estimate ADEQ; Urine White Blood Cell Casts OK
[2019-07-11 07:35] LABS: Anisocytosis 1+; Hypochromasia 1+; Ovalocytes 1+
--- NOTE | 2019-07-11 08:13 | EDPHYS ---
Physician Documentation [facility] Name: Teresita Gorman Age: 23 yrs Sex: Female : 1995 Arrival Date: 07/11/2019 Time: 04:52 Bed 13 Private MD: ED Physician Kike Morrison HPI: 07/11 05:23 This 23 yrs old Female presents to ER via Ambulatory with complaints of Low ma2 Back Pain. 05:23 The patient presents with pain that is acute, with no known mechanism of injury. The ma2 symptoms are located in the right mid back. Onset: The symptoms/episode began/occurred gradually, 1 week(s) ago. Associated signs and symptoms: Pertinent negatives: constipation, hematuria, numbness. Severity of symptoms: At their worst the symptoms were mild, in the emergency department the symptoms are unchanged. The patient has not experienced similar symptoms in the past, The patient has experienced similar episodes in the past. 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 - Social history:: Smoking status: Patient/guardian denies using tobacco, Patient/guardian denies using alcohol, street drugs, Patient/guardian denies using IV drugs, The patient lives alone. - Ebola Screening: : No symptoms or risks identified at this time. - Family history:: not pertinent. ROS: 05:23 Constitutional: Negative for fever, chills, and weight loss. ma2 05:23 All other systems are negative. Exam: 05:23 Constitutional: This is a well developed, well nourished patient who is awake, alert, ma2 and in no acute distress. Chest/axilla: Normal chest wall appearance and motion. Nontender with no deformity. No lesions are appreciated. Cardiovascular: Regular rate and rhythm with a normal S1 and S2. No gallops, murmurs, or rubs. Normal PMI, no JVD. No pulse deficits. Respiratory: Lungs have equal breath sounds bilaterally, clear to auscultation and percussion. No rales, rhonchi or wheezes noted. No increased work of breathing, no retractions or nasal flaring. Abdomen/GI: Soft, non-tender, with normal bowel sounds. No distension or tympany. No guarding or rebound. No evidence of tenderness throughout. Skin: Warm, dry with normal turgor. Normal color with no rashes, no lesions, and no evidence of cellulitis. MS/ Extremity: Pulses equal, no cyanosis. Neurovascular intact. Full, normal range of motion. Neuro: Awake and alert, GCS 15, oriented to person, place, time, and situation. Cranial nerves II-XII grossly intact. Motor strength 5/5 in all extremities. Sensory grossly intact. Cerebellar exam normal. Normal gait. 05:23 Back: mild ttp on right flank, otherwise No spinal tenderness. No left costovertebral ma2 tenderness. Full range of motion. Vital Signs: 05:00 BP 123 / 76; Pulse 104; Resp 16; Temp 98.4(TE); Pulse Ox 100% on R/A; Weight 64.86 kg jb4 (R); Height 5 ft. 4 in. (162.56 cm) (R); Pain 9/10; 06:15 BP 107 / 72; Pulse 79; Resp 16; Pulse Ox 100% on R/A; jb4 07:02 BP 108 / 60; Pulse 79; Resp 16; Pulse Ox 100% ; bp 08:11 BP 106 / 65; Pulse 75; Resp 16; Temp 98.5; Pulse Ox 100% ; bp 05:00 Body Mass Index 24.55 (64.86 kg, 162.56 cm) jb4 MDM: 04:54 Patient medically screened. nm2 05:23 Differential diagnosis: strain, contusion, UTI. Data reviewed: vital signs, nurses ma2 notes. Counseling: I had a detailed discussion with the patient and/or guardian regarding: the historical points, exam findings, and any diagnostic results supporting the discharge/admit diagnosis, the presence of at least one elevated blood pressure reading (>120/80) during this emergency department visit, the need for outpatient follow up. Response to treatment: the patient's symptoms have markedly improved after treatment. 07/11 05:15 Order name: Basic Metabolic Panel [facility] 07/11 05:15 Order name: CBC with Diff [facility] 07/11 05:15 Order name: Creatinine for Radiology; Complete Time: 06:48 [facility] 07/11 05:15 Order name: Hepatic Function [facility] 07/11 05:15 Order name: Lipase [facility] 07/11 05:33 Order name: Urine Dipstick--Ancillary (enter results); Complete Time: 06:48 2 07/11 05:33 Order name: Urine --Ancillary (enter results); Complete Time: 06:48 [facility] 07/11 05:44 Order name: CBC Smear Scan [facility] 07/11 05:52 Order name: Urine Microscopic Only; Complete Time: 06:48 [facility] 07/11 05:52 Order name: Urine Culture [facility] 07/11 05:15 Order name: IV Saline Lock; Complete Time: 05:22 [facility] 07/11 05:15 Order name: Labs collected and sent; Complete Time: 05:22 [facility] 07/11 05:15 Order name: Urine Dipstick-Ancillary (obtain specimen); Complete Time: 05:50 ma2 Administered Medications: 05:40 Drug: Zofran 4 mg Route: IVP; Site: right antecubital; jb4 07:02 Follow up: Response: Nausea is decreased bp 05:43 Drug: morphine 4 mg {Note: Rass score 0.} Route: IVP; Site: right antecubital; jb4 07:03 Follow up: Response: Pain is decreased bp 05:44 Drug: Rocephin 1 grams Route: IV; Rate: calculated rate; Site: right antecubital; jb4 08:12 Follow up: IV Status: Completed infusion; IV Intake: 100ml bp 05:47 Drug: NS 0.9% 2000 ml Route: IV; Rate: 1 bolus; Site: right antecubital; jb4 08:13 Follow up: IV Status: Completed infusion; IV Intake: 2000ml bp 05:47 Drug: Ativan 1 mg Route: PO; jb4 07:02 Follow up: Response: Pain is decreased bp Disposition: 07/11/19 06:51 Discharged to Home. Impression: Infection of other stoma of urinary tract, Cystitis, unspecified without hematuria. - Condition is Stable. - Discharge Instructions: Urinary Tract Infection, Adult. - Prescriptions for Tylenol- Codeine #3 300-30 mg Oral Tablet - take 2 tablet by ORAL route every 6 hours As needed; 30 tablet. Bactrim DS 800- 160 mg Oral Tablet - take 1 tablet by ORAL route every 12 hours for 7 days; 14 tablet. Flomax 0.4 mg Oral Capsule, Sust. Release 24 hr - take 1 capsule by ORAL route once daily 1/2 hour following the same meal each day; 30 capsule. - Medication Reconciliation Form, Thank You Letter, Antibiotic Education, Prescription Opioid Use form. - Follow up: Private Physician; When: Tomorrow; Reason: Continuance of care. Signatures: Dispatcher [employer] [facility] Alexis Eisenberg, RN RN jb4 Adán Lynch RN RN bp Kike Morrison MD MD ma2 Corrections: (The following items were deleted from the chart) 05:34 05:16 QUANTITATIVE HCG+C.LAB.BRZ ordered. [facility] 08:13 06:51 07/11/2019 06:51 Discharged to Home. Impression: Infection of other stoma of bp urinary tract; Cystitis, unspecified without hematuria. Condition is Stable. Discharge Instructions: Urinary Tract Infection, Adult. Prescriptions for Tylenol-Codeine #3 300-30 mg Oral Tablet - take 2 tablet by ORAL route every 6 hours As needed; 30 tablet, Bactrim DS 800-160 mg Oral Tablet - take 1 tablet by ORAL route every 12 hours for 7 days; 14 tablet. and Forms are Medication Reconciliation Form, Thank You Letter, Antibiotic Education, Prescription Opioid Use. Follow up: Private Physician; When: Tomorrow; Reason: Continuance of care. ma2
[2019-07-11 08:20] VITALS: O2SAT 100
[2019-07-11 08:24] VITALS: BP 106/65; TEMP 98.5
== END 2019-07-11 08:13 | disposition home or self-care (01) ==
LOC: ER 04:50
DX: N30.90 Cystitis, unspecified without hematuria (principal); N99.521 Infection of incontinent external stoma of urinary tract; Z88.6 Allergy status to analgesic agent
CPT/HCPCS: 36415; 80048; 80076; 81003; 81015; 81025; 83690; 85025; 87077; 87086; 87088; 87186; 96365; 96366; 96375; 99284; J0696; J2405; J7030